=== PATIENT | male | born 1950 | race Caucasian/White ===

== ENCOUNTER 2018-06-08 22:11 | Emergency (ER) | payer MEDICARE, OTHER ==
[~2018-06-08] VITALS: Ht 175.3 cm; Wt 74.0 kg
[2018-06-08 22:54] LABS: BASOPHILS % (AUTO) 0.7 % (0-1); EOSINOPHILS # (AUTO) 0.2 X10'3 (0-0.9); EOSINOPHILS % (AUTO) 3.8 % (0-6); HEMATOCRIT 41.6 % (42.0-52.0); HEMOGLOBIN 13.8 g/dl (14.0-17.9); LYMPHOCYTES # (AUTO) 1.3 X10'3 (1.1-4.8); LYMPHOCYTES % (AUTO) 22.1 % (21-51); MEAN CORPUSCULAR HEMOGLOBIN 30.6 PG (27.0-31.0); MEAN CORPUSCULAR HGB CONC 33.2 % (33.0-36.5); MEAN PLATELET VOLUME 10.1 FL (7.4-10.4); MONOCYTES # (AUTO) 0.5 X10'3 (0-0.9); MONOCYTES % (AUTO) 8.4 % (2-12); NEUTROPHILS # (AUTO) 3.9 X10'3 (1.8-7.7); PLATELET COUNT 171 X10'3 (140-440); RED BLOOD COUNT 4.52 X10'6 (4.70-6.10); RED CELL DISTRIBUTION WIDTH 15.3 % (11.5-14.5)
[2018-06-08 23:05] LABS: INR 1.1 INR; PARTIAL THROMBOPLASTIN TIME 27 SECONDS (22-32); PROTHROMBIN TIME 11.1 SECONDS (9.0-12.0)
[2018-06-08 23:07] LABS: ALANINE AMINOTRANSFERASE 35 U/L (12-78); ALBUMIN 3.5 G/DL (3.4-5.0); ALBUMIN/GLOBULIN RATIO 1.1 (1.1-1.5); ALKALINE PHOSPHATASE 62 IU/L (46-116); ANION GAP 10 (8-16); ASPARTATE AMINO TRANSFERASE 22 U/L (10-37); BILIRUBIN,TOTAL 0.5 MG/DL (0.1-1.0); BLOOD UREA NITROGEN 35 MG/DL (7-18); BUN/CREATININE RATIO 22.3 (5.4-32.0); CALCIUM 9.4 MG/DL (8.5-10.1); CHLORIDE 104 MMOL/L (99-107); CREATININE 1.57 MG/DL (0.60-1.10); GLUCOSE 116 MG/DL (70-104); POTASSIUM 3.8 MMOL/L (3.5-5.1); SODIUM 139 MMOL/L (135-145); TOTAL CARBON DIOXIDE 25.5 MMOL/L (24-32); TOTAL PROTEIN 6.7 G/DL (6.4-8.2); eGFR 44 ML/MIN
[2018-06-08] MEDS ORDERED: normal saline 1000ML IV soln IVB ONE (23:15)
[2018-06-09 01:04] VITALS: BP 122/68
== END 2018-06-09 02:39 | disposition home or self-care (01) ==
LOC: ER 22:12
DX: R07.89 Other chest pain (principal); R11.0 Nausea; R61 Generalized hyperhidrosis; I25.10 Atherosclerotic heart disease of native coronary artery without angina pectoris; E78.00 Pure hypercholesterolemia, unspecified; I10 Essential (primary) hypertension; I25.2 Old myocardial infarction; Z98.61 Coronary angioplasty status; Z95.1 Presence of aortocoronary bypass graft
CPT/HCPCS: 36415; 71045; 80053; 84484; 85025; 85610; 85730; 93005; 99285

== ENCOUNTER 2018-10-12 08:18 | Day surgery (SDC) | payer OTHER, MEDICARE ==
[2018-10-11 10:02] LABS: BASOPHILS # (AUTO) 0.1 X10'3 (0-0.2); EOSINOPHILS # (AUTO) 0.2 X10'3 (0-0.9); EOSINOPHILS % (AUTO) 2.4 % (0-6); HEMATOCRIT 44.5 % (42.0-52.0); HEMOGLOBIN 15.1 g/dl (14.0-17.9); LYMPHOCYTES # (AUTO) 1.2 X10'3 (1.1-4.8); MEAN CORPUSCULAR HEMOGLOBIN 32.1 PG (27.0-31.0); MEAN CORPUSCULAR HGB CONC 33.8 g/dL (33.0-36.5); MEAN PLATELET VOLUME 10.5 FL (7.4-10.4); MONOCYTES # (AUTO) 0.5 X10'3 (0-0.9); NEUTROPHILS % (AUTO) 72.6 % (42-75); PLATELET COUNT 174 X10'3 (140-440); RED BLOOD COUNT 4.68 X10'6 (4.70-6.10); RED CELL DISTRIBUTION WIDTH 14.6 % (11.5-14.5); WHITE BLOOD COUNT 6.9 X10'3 (4.5-11.0)
[2018-10-11 10:24] LABS: ANION GAP 9 (8-16); BLOOD UREA NITROGEN 24 MG/DL (7-18); CALCIUM 9.2 MG/DL (8.5-10.1); CHLORIDE 104 MMOL/L (99-107); CREATININE 1.41 MG/DL (0.60-1.10); GLUCOSE 107 MG/DL (70-104); POTASSIUM 4.4 MMOL/L (3.5-5.1); SODIUM 139 MMOL/L (135-145); eGFR 50 ML/MIN
[2018-10-11 10:25] LABS: ALBUMIN 3.9 G/DL (3.4-5.0)
[2018-10-11 10:35] LABS: INR 1.1 INR; PARTIAL THROMBOPLASTIN TIME 28 SECONDS (22-32); PROTHROMBIN TIME 10.9 SECONDS (9.0-12.0)
[~2018-10-12] VITALS: Ht 175.3 cm; Wt 77.7 kg
[2018-10-12] VITALS (19 sets, daily range): BP systolic 99–158; BP diastolic 27–95
[2018-10-12] MEDS ORDERED: LORazepam 0.5 MG tablet PO PRN (09:00)
[2018-10-12] MEDS ORDERED: diphenhydrAMINE 25mg capsule PO PRN (09:00)
[2018-10-12] MEDS ORDERED: PRAS10TA6 PO (09:12)
[2018-10-12] MEDS ORDERED: NITR0.4T51 SL (09:12)
[2018-10-12] MEDS ORDERED: RANI150T8 PO (09:12)
[2018-10-12] MEDS ORDERED: CARV3.122 PO (09:12)
[2018-10-12] MEDS ORDERED: LISI-604 PO (09:12)
[2018-10-12] MEDS ORDERED: ZOLP5TAB8 PO (09:12)
[2018-10-12] MEDS ORDERED: ASPI-1265 PO (09:12)
[2018-10-12] MEDS ORDERED: AMIO100T4 PO (09:12)
[2018-10-12] MEDS ORDERED: ATOR80TA PO (09:12)
[2018-10-12] MEDS: normal saline 1000ml 1,000 ML IV SCH ×3 (09:16→19:45)
[2018-10-12] MEDS ORDERED: fentaNYL/PF 50MCG/1 ML 2ML syringe ONE ×2 (13:28→14:19)
[2018-10-12] MEDS ORDERED: midazolam 2 mg/2 ml injection ONE ×2 (13:28→14:19)
[2018-10-12] MEDS ORDERED: nitroGLYCERIN-Tridil 50MG/D5W 250 ML IV ONE (13:28)
[2018-10-12] MEDS ORDERED: iohexol 350MG/ML 100ml bottle IV ONE ×2 (13:29→14:19)
[2018-10-12] MEDS ORDERED: iohexol 350 MG/ML 50ML vial IV ONE ×2 (13:29→14:07)
[2018-10-12] MEDS ORDERED: LIDOcaine 1% (10mg/ml)w/preservative injection 20ml MDV ONE (13:29)
[2018-10-12] MEDS ORDERED: heparin 1,000unit/ml 10ml vial 10 ML ONE (13:29)
[2018-10-12] MEDS ORDERED: heparin 25,000 UNIT/250ml bag 250 ML IV ONE (14:19)
[2018-10-12] MEDS ORDERED: acetylcysteine 200 MG/ml 4ml vial PO ONE (14:30)
[2018-10-12] MEDS ORDERED: sod bicarbonate 150mEq in D5W 1,150 ML IV ONE (14:30)
[2018-10-12] MEDS ORDERED: ticagrelor 90mg tablet ONE (15:02)
[2018-10-12] MEDS ORDERED: morphine 4 MG/ML inj SYRINge IV PRN (15:40)
[2018-10-12] MEDS ORDERED: HYDROcodone/acetaminophen 10/325mg tab PO PRN ×2 (15:40)
[2018-10-12] MEDS ORDERED: magnesium hydroxide 30ml (MOM) UD suspension PO PRN (15:40)
[2018-10-12] MEDS ORDERED: nitroGLYCERIN 0.4mg SUBLingual tab SL PRN (15:40)
[2018-10-12] MEDS ORDERED: zolpidem 5mg tablet PO PRN (15:40)
[2018-10-12] MEDS ORDERED: cyclobenzaprine 10mg tablet PO PRN (15:40)
[2018-10-12] MEDS ORDERED: acetaminophen 325mg tablet PO PRN (15:40)
[2018-10-12] MEDS ORDERED: proCHLORperazine 10 MG/2 ml inj IV PRN (15:40)
[2018-10-12] MEDS ORDERED: OXAZEpam 15mg capsule PO PRN (15:40)
[2018-10-12 18:26] LABS: ISTAT HGB ART 14.6 g/dl (14.0-18.0); ISTAT Hct ART 43 %PCV (42-52); ISTAT O2 SATURATION ARTERIAL 99 % (95-98); ISTAT SOURCE ART
[2018-10-12 18:26] LABS: ISTAT Hct MIX 42 %PCV (42-52); ISTAT O2 SATURATION MIX VENOUS 77 % (60-80); ISTAT SOURCE MIX
--- NOTE | 2018-10-12 18:46 | NUR ---
Problems reprioritized. Patient report given, questions answered & plan of care reviewed with ZULEYMA LOYA.
--- NOTE | 2018-10-12 18:48 | NUR ---
Abiola Posey RN received report from Alissa AMOR via telephone. Waiting for pt arrival to [facility] 3017A Addendum: 10/12/18 at 2125 by Linda Smith RN ZULEYMA Tapia
--- NOTE | 2018-10-12 18:50 | NUR ---
Patient in room PCU 3017. I have received report from Richi and had the opportunity to ask questions and assume patient care.
--- NOTE | 2018-10-12 19:00 | NUR ---
PT TRANSFERRED TO [facility] VIA [facility]. BELONGINGS AND CHART WITH PATIENT.
--- NOTE | 2018-10-12 19:16 | NUR ---
Pt arrived and transferred using Teresa tube. Alert and oriented. Stent x1 placed in RCA. He reports this being his 5th stent and 8th heart cath. Pleasant and cooperative with care. VSS. Femstop in place. Supine and reverse trendelenburg for the next 4-6 hours. NS running at 100 ml/hr
[2018-10-12] MEDS: docusate sod 100mg capsule PO SCH (20:03)
[2018-10-12] MEDS: ticagrelor 90mg tablet PO SCH (20:04)
[2018-10-12] MEDS: carVEDilol 3.125mg tablet PO SCH (20:04)
[2018-10-12] MEDS: aspirin 81mg tab.chew PO SCH (20:04)
[2018-10-12] MEDS ORDERED: famotidine 20mg tablet PO SCH (21:00)
[2018-10-12] MEDS ORDERED: atorvastatin 20mg tablet PO SCH (21:00)
[2018-10-12] MEDS: acetylcysteine 200 MG/ml 4ml vial PO SCH (22:48)
--- NOTE | 2018-10-12 23:00 | NUR ---
Pt laid supine for [address] in [address]. Some bruising to site. No hematoma present. Some hardness, pt reports is from a prior hernia. No hematomas present. Femstop has been removed and pt is resting in semi fowlers.
[2018-10-13 02:00] VITALS: BP 116/60
[2018-10-13 03:11] VITALS: BP 116/60
[2018-10-13 05:19] LABS: BASOPHILS # (AUTO) 0.1 X10'3 (0-0.2); BASOPHILS % (AUTO) 0.8 % (0-1); EOSINOPHILS # (AUTO) 0.1 X10'3 (0-0.9); EOSINOPHILS % (AUTO) 2.1 % (0-6); HEMATOCRIT 38.3 % (42.0-52.0); HEMOGLOBIN 13.1 g/dl (14.0-17.9); LYMPHOCYTES # (AUTO) 1.3 X10'3 (1.1-4.8); LYMPHOCYTES % (AUTO) 19.4 % (21-51); MEAN CORPUSCULAR HEMOGLOBIN 32.4 PG (27.0-31.0); MEAN CORPUSCULAR HGB CONC 34.2 g/dL (33.0-36.5); MEAN CORPUSCULAR VOLUME 94.7 FL (78-98); MEAN PLATELET VOLUME 10.4 FL (7.4-10.4); MONOCYTES # (AUTO) 0.5 X10'3 (0-0.9); MONOCYTES % (AUTO) 7.6 % (2-12); NEUTROPHILS # (AUTO) 4.9 X10'3 (1.8-7.7); NEUTROPHILS % (AUTO) 70.1 % (42-75); PLATELET COUNT 142 X10'3 (140-440); RED BLOOD COUNT 4.04 X10'6 (4.70-6.10); RED CELL DISTRIBUTION WIDTH 14.7 % (11.5-14.5); WHITE BLOOD COUNT 6.9 X10'3 (4.5-11.0)
[2018-10-13 05:42] LABS: ANION GAP 7 (8-16); BLOOD UREA NITROGEN 20 MG/DL (7-18); BUN/CREATININE RATIO 14.2 (5.4-32.0); CALCIUM 8.6 MG/DL (8.5-10.1); CHLORIDE 108 MMOL/L (99-107); CREATININE 1.41 MG/DL (0.60-1.10); GLUCOSE 92 MG/DL (70-104); POTASSIUM 4.1 MMOL/L (3.5-5.1); SODIUM 143 MMOL/L (135-145); eGFR 50 ML/MIN
--- NOTE | 2018-10-13 06:25 | NUR ---
Patient in room PCU 3017. I have received report from Johnna RN and UZLEYMA Posey and had the opportunity to ask questions and assume patient care.
--- NOTE | 2018-10-13 06:25 | NUR ---
Problems reprioritized. Patient report given, questions answered & plan of care reviewed with Mari.
--- NOTE | 2018-10-13 06:27 | NUR ---
Problems reprioritized. Patient report given, questions answered & plan of care reviewed with Mari AMOR. ORIENTEE documentation: I have reviewed and agree with all interventions, assessments performed and documented by GORDON AMOR. ORIENTZAHRA Medication Administration: For this medication-pass time frame, all medication were reviewed, dispensed, administered and documented per hospital policy by GORDON AMOR.
[2018-10-13 07:00] VITALS: BP 137/72
[2018-10-13] MEDS: aspirin 81mg tab.chew PO SCH (07:56)
[2018-10-13] MEDS: ticagrelor 90mg tablet PO SCH (07:56)
[2018-10-13] MEDS: carVEDilol 3.125mg tablet PO SCH (07:57)
[2018-10-13] MEDS: docusate sod 100mg capsule PO SCH (07:57)
[2018-10-13] MEDS ORDERED: lisinopril 5mg tablet PO SCH (08:00)
[2018-10-13] MEDS ORDERED: amiodarone 100mg tablet PO SCH (08:00)
[2018-10-13] MEDS: acetylcysteine 200 MG/ml 4ml vial PO SCH (08:00)
[2018-10-13 11:00] VITALS: BP 129/68
--- NOTE | 2018-10-13 13:25 | NUR ---
Pt discharged. IV removed, catheter intact, ID band removed. Pt took one bag of belongings including cell phone and wallet. Ambulated pt to lobby where he left via cab. Pt in stable condition. Care relinquished.
== END 2018-10-13 13:25 | disposition home or self-care (01) ==
LOC: SSTAY O 08:18 → PCU 3S 19:19 → SSTAY O 10-13 13:25
PROVIDERS: ATTEND Internal Medicine Cardiovascular Disease
DX: I25.10 Atherosclerotic heart disease of native coronary artery without angina pectoris (principal); I50.22 Chronic systolic (congestive) heart failure; E78.5 Hyperlipidemia, unspecified; I48.0 Paroxysmal atrial fibrillation; I25.5 Ischemic cardiomyopathy; I11.0 Hypertensive heart disease with heart failure; I49.01 Ventricular fibrillation; I25.2 Old myocardial infarction; G47.00 Insomnia, unspecified; Z79.82 Long term (current) use of aspirin; Z79.899 Other long term (current) drug therapy; Z98.890 Other specified postprocedural states; Z83.3 Family history of diabetes mellitus; Z95.5 Presence of coronary angioplasty implant and graft
CPT/HCPCS: 36415; 80048; 82803; 83880; 85014; 85025; 85347; 85610; 85730; 87070; 93005; 93460; 99152; 99153; A6257; C1874; C9600; J1644; J2001; J2250; J2270; J3010; J7030; Q0163; Q9967; A4620; C1725; C1769; G0378; J3490

== ENCOUNTER 2020-03-06 06:32 | Day surgery (SDC) | payer OTHER, MEDICARE ==
[2020-03-05 09:42] LABS: BASOPHILS # (AUTO) 0.1 X10'3 (0-0.2); EOSINOPHILS # (AUTO) 0.2 X10'3 (0-0.9); EOSINOPHILS % (AUTO) 3.8 % (0-6); HEMATOCRIT 45.3 % (42.0-52.0); HEMOGLOBIN 15.1 g/dl (14.0-17.9); LYMPHOCYTES # (AUTO) 1.1 X10'3 (1.1-4.8); LYMPHOCYTES % (AUTO) 18.1 % (21-51); MEAN CORPUSCULAR HEMOGLOBIN 32.1 PG (27.0-31.0); MEAN CORPUSCULAR HGB CONC 33.3 g/dL (33.0-36.5); MEAN CORPUSCULAR VOLUME 96.3 FL (78-98); MEAN PLATELET VOLUME 10.1 FL (7.4-10.4); MONOCYTES # (AUTO) 0.5 X10'3 (0-0.9); MONOCYTES % (AUTO) 8.7 % (2-12); NEUTROPHILS # (AUTO) 4.2 X10'3 (1.8-7.7); NEUTROPHILS % (AUTO) 68.4 % (42-75); PLATELET COUNT 174 X10'3 (140-440); RED BLOOD COUNT 4.71 X10'6 (4.70-6.10); RED CELL DISTRIBUTION WIDTH 13.9 % (11.5-14.5); WHITE BLOOD COUNT 6.2 X10'3 (4.5-11.0)
[2020-03-05 09:53] LABS: ALBUMIN 3.9 G/DL (3.4-5.0); ANION GAP 6 (8-16); BLOOD UREA NITROGEN 19 MG/DL (7-18); BUN/CREATININE RATIO 12.5 (5.4-32.0); CALCIUM 8.9 MG/DL (8.5-10.1); CHLORIDE 106 MMOL/L (99-107); CREATININE 1.52 MG/DL (0.60-1.10); GLUCOSE 108 MG/DL (70-104); POTASSIUM 4.5 MMOL/L (3.5-5.1); SODIUM 140 MMOL/L (135-145); TOTAL CARBON DIOXIDE 27.6 MMOL/L (24-32); eGFR 45 ML/MIN
[2020-03-05 09:55] LABS: PARTIAL THROMBOPLASTIN TIME 27 SECONDS (22-32)
[~2020-03-06] VITALS: Ht 175.3 cm; Wt 76.3 kg
[2020-03-06] VITALS (12 sets, daily range): BP systolic 108–166; BP diastolic 66–91
[~2020-03-06 06:32] MED LIST: AMIO100T4 PO; ASPI-1265 PO; ATOR80TA PO; CARV3.122 PO; LISI-604 PO; NITR0.4T51 SL; PRAS10TA6 PO; RANI150T8 PO; ZOLP5TAB8 PO
[2020-03-06] MEDS ORDERED: acetylcysteine 200 MG/ml 4ml vial PO PRN (06:43)
[2020-03-06] MEDS ORDERED: normal saline 1,000 ML IV SCH (06:45)
[2020-03-06] MEDS ORDERED: diphenhydrAMINE 25mg capsule PO PRN (06:45)
[2020-03-06] MEDS ORDERED: sodium bicarbonate (8.4%) inj. 150 ML in dextrose 5%-water 1,000 ML IV ONE (06:55)
[2020-03-06] MEDS ORDERED: LORazepam 0.5 MG tablet PO PRN (07:00)
[2020-03-06] MEDS ORDERED: LIDOcaine/PRILOcaine 5gm cream TP ONE (07:05)
[2020-03-06] MEDS ORDERED: SAW160CA3 PO (07:13)
[2020-03-06] MEDS ORDERED: MECO10005 (07:13)
[2020-03-06] MEDS ORDERED: UBID1CAP54 PO (07:13)
[2020-03-06] MEDS ORDERED: LOSA100T57 PO (07:13)
[2020-03-06] MEDS ORDERED: VALS80TA2 PO (07:13)
[2020-03-06] MEDS ORDERED: OMEP-50 PO (07:13)
[2020-03-06] MEDS ORDERED: verapamil 2.5 mg/ml inj IV ONE (09:44)
[2020-03-06] MEDS ORDERED: midazolam 2 mg/2 ml injection ONE (09:44)
[2020-03-06] MEDS ORDERED: nitroGLYCERIN-Tridil 50MG/D5W 250 ML IV ONE (09:44)
[2020-03-06] MEDS ORDERED: iohexol 350MG/ML 100ml bottle IV ONE ×2 (09:45→10:40)
[2020-03-06] MEDS ORDERED: LIDOcaine 1% (10mg/ml)w/preservative injection 20ml MDV ONE (09:45)
[2020-03-06] MEDS ORDERED: fentaNYL/PF 50MCG/1 ML 2ML syringe ONE (09:45)
[2020-03-06] MEDS ORDERED: iohexol 350 MG/ML 50ML vial IV ONE ×2 (09:45→10:40)
[2020-03-06] MEDS ORDERED: heparin 1,000unit/ml 10ml vial 10 ML ONE (09:45)
[2020-03-06 11:01] LABS: ISTAT HGB ART 12.2 g/dl (14.0-18.0); ISTAT Hct ART 36 %PCV (42-52); ISTAT O2 SATURATION ARTERIAL 97 % (95-98); ISTAT SOURCE ART
== END 2020-03-06 16:00 | disposition home or self-care (01) ==
LOC: SSTAY O 06:32
PROVIDERS: ATTEND Internal Medicine Cardiovascular Disease
DX: I25.110 Atherosclerotic heart disease of native coronary artery with unstable angina pectoris (principal); I48.0 Paroxysmal atrial fibrillation; I13.0 Hypertensive heart and chronic kidney disease with heart failure and stage 1 through stage 4 chronic kidney disease, or unspecified chronic kidney disease; N18.9 Chronic kidney disease, unspecified; I50.22 Chronic systolic (congestive) heart failure; E78.5 Hyperlipidemia, unspecified; G47.00 Insomnia, unspecified; I25.2 Old myocardial infarction; F43.10 Post-traumatic stress disorder, unspecified; Z98.890 Other specified postprocedural states; Z79.899 Other long term (current) drug therapy; F17.210 Nicotine dependence, cigarettes, uncomplicated; Z72.89 Other problems related to lifestyle; Z95.5 Presence of coronary angioplasty implant and graft
CPT/HCPCS: 36415; 80048; 82803; 85014; 85025; 85610; 85730; 93005; 93460; 99152; 99153; C1769; C1894; J1644; J2001; J2250; J3010; Q0163; Q9967; A4620; A5120; C1751; J3490

== ENCOUNTER 2020-03-20 05:14 | Inpatient (IN) | payer OTHER, MEDICARE ==
[2020-03-13 13:05] LABS: ABG BASE EXCESS -2.4 mmol/L (-2.0-2.0); ABG HCO3 20.2 mmol/L (22.0-26.0); ABG OXYGEN SATURATION 97.6 % (94-97); ABG PCO2 (T) 29.5 mmHg (35.0-48.0); ABG PO2 (T) 99.9 mmHg (75.0-100.0); ALLEN'S TEST POSITIVE; FCOHb 0.4 % (0.0-3.9); FMetHb 0.2 % (0.0-1.5); TOTAL HEMOGLOBIN 14.5 G/dl (14.0-18.0)
[2020-03-13 13:43] LABS: CLARITY,URINE CLEAR (Clear); COLOR,URINE STRAW (Yellow); GLUCOSE, URINE NEGATIVE (Neg); KETONES,URINE NEGATIVE (Neg); LEUKOCYTE ESTERASE ,URINE NEGATIVE (Neg); NITRITES, URINE NEGATIVE (Neg); OCCULT BLOOD,URINE TRACE-INTACT (Neg); PROTEIN,URINE NEGATIVE (Neg); UROBILINOGEN,URINE 0.2 E.U/dL (0.2-1.0)
[2020-03-13 13:46] LABS: UA COLLECTION TYPE VOIDED
[2020-03-13 13:48] LABS: BACTERIA,URINE FEW /HPF (Neg); RBC,URINE 0-2 /HPF (0-2); SQUAMOUS EPITHELIAL CELL,UR FEW /LPF (FEW); WBC,URINE 0-4 /HPF (0-4)
[2020-03-13 13:58] LABS: BASOPHILS # (AUTO) 0.1 X10'3 (0-0.2); EOSINOPHILS # (AUTO) 0.1 X10'3 (0-0.9); LYMPHOCYTES # (AUTO) 1.2 X10'3 (1.1-4.8); LYMPHOCYTES % (AUTO) 17.3 % (21-51); MEAN CORPUSCULAR HEMOGLOBIN 32.2 PG (27.0-31.0); MEAN CORPUSCULAR HGB CONC 33.4 g/dL (33.0-36.5); MEAN CORPUSCULAR VOLUME 96.5 FL (78-98); MEAN PLATELET VOLUME 10.8 FL (7.4-10.4); MONOCYTES # (AUTO) 0.5 X10'3 (0-0.9); MONOCYTES % (AUTO) 6.7 % (2-12); NEUTROPHILS # (AUTO) 5.2 X10'3 (1.8-7.7); PRE OP HEMATOCRIT 42.5 % (42.0-52.0); PRE OP HEMOGLOBIN 14.2 g/dL (14.0-17.9); PRE OP PLATELET COUNT 165 X10'3 (140-440); RED CELL DISTRIBUTION WIDTH 14.1 % (11.5-14.5)
[2020-03-13 14:12] LABS: PRE OP INR 1.1 INR; PRE OP PROTIME 11.4 SECONDS (9.0-12.0)
[2020-03-13 14:25] LABS: ALBUMIN/GLOBULIN RATIO 1.3 (1.1-1.5); ALKALINE PHOSPHATASE 65 IU/L (46-116); BLOOD UREA NITROGEN 16 MG/DL (7-18); BUN/CREATININE RATIO 11.8 (5.4-32.0); CALCIUM 8.8 MG/DL (8.5-10.1); CHLORIDE 106 MMOL/L (99-107); CREATININE 1.36 MG/DL (0.60-1.10); PRE OP ALT 29 U/L (30-65); PRE OP ANION GAP 9 (8-16); PRE OP AST 17 U/L (10-37); PRE OP BILIRUB, TOTAL 1.2 MG/DL (0.0-1.0); PRE OP GLUCOSE 96 MG/DL (70-104); PRE OP POTASSIUM 3.7 MMOL/L (3.4-5.1); PRE OP SODIUM 142 MMOL/L (135-145); eGFR 52 ML/MIN
[2020-03-13 14:44] LABS: HEMOGLOBIN A1C 5.2 % (4.5-6.2)
[~2020-03-20] VITALS: Ht 175.3 cm; Wt 78.4 kg
[2020-03-20] VITALS (18 sets, daily range): BP systolic 107–150; BP diastolic 46–83
[~2020-03-20 05:14] MED LIST changes: -LISI-604 PO; +MECO10005; +OMEP-50 PO; -RANI150T8 PO; +SAW160CA3 PO; +UBID1CAP54 PO; +VALS80TA2 PO; +albuterol 2.5 MG/3 ML nebule NEB ONE; +ceFAZolin 1000mg inj ONE; +ringers solution, lacted 1,000 ML IV SCH
[2020-03-20] MEDS ORDERED: DOCUMENT DATE & TIME OF BETA-BLOCKER PO ONE (05:30)
[2020-03-20] MEDS ORDERED: dextrose 50%-water 50ml dispensing syringe IV PRN ×2 (05:30→12:20)
[2020-03-20] MEDS ORDERED: LORazepam 2 mg/ml vial IV PRN (05:30)
[2020-03-20] MEDS: Insulin Reg/NS 100units/100mL 100 ML IV SCH (05:30)
[2020-03-20] MEDS ORDERED: gabapentin 300mg capsule PO ONE (05:30)
[2020-03-20] MEDS ORDERED: metoprolol tartrate 12.5mg (1/2 tablet) PO ONE (05:30)
[2020-03-20] MEDS ORDERED: mupirocin 2% nasal ointment 1gm UD NS ONE (05:30)
[2020-03-20] MEDS ORDERED: famotidine 20mg tablet PO ONE (05:30)
[2020-03-20] MEDS ORDERED: ceFAZolin 2gm in dextrose, iso 50 ML IV ONE (05:30)
[2020-03-20] MEDS ORDERED: Insulin Reg/NS 100units/100mL 100 ML IV SCH ×2 (05:30→12:19)
[2020-03-20] MEDS ORDERED: insulin Lispro (HumaLOG) vial - multi-dose SQ PRN (05:30)
[2020-03-20] MEDS ORDERED: MIDAZolam 1mg/ml 10ml vial ONE (06:45)
[2020-03-20] MEDS ORDERED: vancomycin/NS 1 GM ADD-VANTAGE 250 ML IV ONE (06:45)
[2020-03-20] MEDS ORDERED: SUFENTANIL CITRATE 50 MCG/ML 2ml ampule IV ONE (06:49)
[2020-03-20] MEDS ORDERED: DOPamine/D5W 400mg/250ml bag IV ONE ×2 (06:55)
[2020-03-20] MEDS ORDERED: INSULIN R 100 UNIT in NS 100ML (1 UNIT/1 ML) BAG IV ONE (06:55)
[2020-03-20] MEDS ORDERED: albumin (Human) 5% 250ml BOTTLE IV ONE (06:55)
[2020-03-20] MEDS ORDERED: aminocaproic acid 250 MG/1 ML inj. ONE ×2 (06:55→08:00)
[2020-03-20] MEDS ORDERED: ceFAZolin 1000mg inj ONE (06:55)
[2020-03-20] MEDS ORDERED: NORepinephrine 8 MG in NS 250 ML BAG (32 mcg/ml) IV ONE (06:55)
[2020-03-20] MEDS ORDERED: nitroGLYCERIN in D5W 50mg/250ml (Tridil) infusion IV ONE (06:55)
[2020-03-20] MEDS ORDERED: sevoflurane 250ml liquid IH ONE (06:55)
[2020-03-20] MEDS ORDERED: atropine 0.4 mg/ml 20ml vial ONE (06:55)
[2020-03-20] MEDS ORDERED: isoflurane 100ml inhalation liquid IH ONE (06:55)
[2020-03-20] MEDS ORDERED: papaverine 30 mg/ml 2ml inj. ONE (07:00)
[2020-03-20] MEDS ORDERED: LIDOcaine 2% (20 mg/ml) 5ml cardiac syringe ONE (08:00)
[2020-03-20] MEDS ORDERED: sodium bicarbonate (8.4%) 1 mEq/ml syringe ONE (08:00)
[2020-03-20] MEDS ORDERED: methylPREDNISolone sod. succ. 500mg inj ONE (08:00)
[2020-03-20] MEDS ORDERED: albumin (human) 25% 100 ML IV solution IV ONE (08:00)
[2020-03-20] MEDS ORDERED: calcium chloride 100 MG/1 ML inj IV ONE (08:00)
[2020-03-20] MEDS ORDERED: phenylephrine 10mg/ml inj. ONE ×2 (08:00→08:27)
[2020-03-20] MEDS ORDERED: heparin 1,000 units/ml 10ml inj ONE (08:00)
[2020-03-20] MEDS ORDERED: MAGNESIUM SULFATE 4 MEQ/ML (5gm/10ml) injection ONE (08:00)
[2020-03-20] MEDS ORDERED: heparin 10,000 units/1 ML INJ ONE (08:00)
[2020-03-20] MEDS ORDERED: potassium Cl 2 mEq/ml inj IV ONE (08:00)
[2020-03-20 08:05] LABS: ABG BASE EXCESS -3.1 mmol/L (-2.0-2.0); ABG HCO3 20.8 mmol/L (22.0-26.0); ABG OXYGEN SATURATION 99.4 % (94-97); ABG PCO2 33.7 mmHg (35.0-48.0); ABG PO2 291.2 mmHg (75.0-100.0); CL (ABG) 107 mmol/L (98-110); FCOHb 0.3 % (0.0-3.9); FMetHb 0.2 % (0.0-1.5); FO2Hb 98.9 % (94-97); GLUCOSE (ABG) 98 mg/dl (70-140); IONIZED CA (ABG) 1.12 mmol/L (1.10-1.43); K (ABG) 3.6 mmol/L (3.5-5.0); TOTAL HEMOGLOBIN 12.2 G/dl (14.0-18.0)
[2020-03-20] MEDS ORDERED: propofol inj 20 ML IV ONE (08:27)
[2020-03-20] MEDS ORDERED: LIDOcaine 2% (20mg/ml) 5ml vial ONE (08:27)
[2020-03-20] MEDS ORDERED: rocuronium 10mg/ml inj IV ONE ×2 (08:27)
[2020-03-20] MEDS ORDERED: 0.9 % SODIUM CHLORIDE 10 ML VIAL ONE ×2 (08:27)
[2020-03-20] MEDS ORDERED: ePHEDrine 50MG/ML INJ. ONE (08:27)
[2020-03-20] MEDS ORDERED: papaverine 30 mg/ml 2ml inj. IA ONE (08:38)
[2020-03-20] MEDS ORDERED: heparin 10,000 units/1 ML INJ IR ONE (08:39)
[2020-03-20] MEDS ORDERED: fentaNYL/PF 50MCG/1 ML 2ML syringe IV PRN (09:05)
[2020-03-20] MEDS ORDERED: midazolam 2 mg/2 ml injection IV PRN (09:05)
[2020-03-20 09:21] LABS: ABG BASE EXCESS 2.6 mmol/L (-2.0-2.0); ABG HCO3 25.8 mmol/L (22.0-26.0); ABG OXYGEN SATURATION 99.4 % (94-97); ABG PCO2 34.5 mmHg (35.0-48.0); ABG PO2 241.5 mmHg (75.0-100.0); CL (ABG) 105 mmol/L (98-110); FCOHb 0.2 % (0.0-3.9); FMetHb 0.3 % (0.0-1.5); FO2Hb 98.9 % (94-97); GLUCOSE (ABG) 95 mg/dl (70-140); IONIZED CA (ABG) 1.02 mmol/L (1.10-1.43); K (ABG) 4.7 mmol/L (3.5-5.0); TOTAL HEMOGLOBIN 10.4 G/dl (14.0-18.0)
[2020-03-20 09:50] LABS: ABG BASE EXCESS VENOUS -0.3 mmol/L; ABG HCO3 VENOUS 27.7 mmol/L; ABG PCO2 VENOUS 62.9 mmHg; ABG PO2 VENOUS 61.1 mmHg; CL (ABG) 105 mmol/L (98-110); FCOHb VENOUS 0.3 %; FHHb VENOUS 13.9 %; FMetHb VENOUS 0.5 %; FO2Hb VENOUS 85.3 %; GLUCOSE (ABG) 95 mg/dl (70-140); IONIZED CA (ABG) 1.11 mmol/L (1.10-1.43); K (ABG) 4.3 mmol/L (3.5-5.0)
[2020-03-20 10:10] LABS: ABG BASE EXCESS 0.1 mmol/L (-2.0-2.0); ABG HCO3 23.9 mmol/L (22.0-26.0); ABG PCO2 35.9 mmHg (35.0-48.0); ABG PO2 260.3 mmHg (75.0-100.0); CL (ABG) 107 mmol/L (98-110); FCOHb 0.3 % (0.0-3.9); FMetHb 0.4 % (0.0-1.5); FO2Hb 98.3 % (94-97); GLUCOSE (ABG) 102 mg/dl (70-140); IONIZED CA (ABG) 1.05 mmol/L (1.10-1.43); K (ABG) 4.3 mmol/L (3.5-5.0); TOTAL HEMOGLOBIN 10.4 G/dl (14.0-18.0)
[2020-03-20 10:40] LABS: ABG BASE EXCESS 0.1 mmol/L (-2.0-2.0); ABG HCO3 24.3 mmol/L (22.0-26.0); ABG OXYGEN SATURATION 98.5 % (94-97); ABG PCO2 37.3 mmHg (35.0-48.0); ABG PO2 159.9 mmHg (75.0-100.0); CL (ABG) 109 mmol/L (98-110); FCOHb 0.3 % (0.0-3.9); FMetHb 0.4 % (0.0-1.5); FO2Hb 97.8 % (94-97); GLUCOSE (ABG) 109 mg/dl (70-140); IONIZED CA (ABG) 1.05 mmol/L (1.10-1.43); K (ABG) 4.4 mmol/L (3.5-5.0); TOTAL HEMOGLOBIN 9.7 G/dl (14.0-18.0)
[2020-03-20 11:11] LABS: ABG BASE EXCESS -0.4 mmol/L (-2.0-2.0); ABG HCO3 23.3 mmol/L (22.0-26.0); ABG PCO2 33.6 mmHg (35.0-48.0); ABG PO2 246.3 mmHg (75.0-100.0); CL (ABG) 105 mmol/L (98-110); FCOHb 0.3 % (0.0-3.9); FMetHb 0.6 % (0.0-1.5); FO2Hb 98.1 % (94-97); GLUCOSE (ABG) 104 mg/dl (70-140); IONIZED CA (ABG) 1.38 mmol/L (1.10-1.43); K (ABG) 3.9 mmol/L (3.5-5.0)
[2020-03-20 11:35] LABS: ABG HCO3 23.4 mmol/L (22.0-26.0); ABG OXYGEN SATURATION 98.6 % (94-97); ABG PCO2 32.9 mmHg (35.0-48.0); CL (ABG) 108 mmol/L (98-110); FCOHb 0.3 % (0.0-3.9); FMetHb 0.5 % (0.0-1.5); FO2Hb 97.8 % (94-97); GLUCOSE (ABG) 112 mg/dl (70-140); IONIZED CA (ABG) 1.17 mmol/L (1.10-1.43); K (ABG) 3.4 mmol/L (3.5-5.0); TOTAL HEMOGLOBIN 8.4 G/dl (14.0-18.0)
[2020-03-20] MEDS ORDERED: niCARDipine-NS 40mg/200ml IVPB 200 ML IV PRN (12:19)
[2020-03-20] MEDS ORDERED: DOPamine 400mg/D5W 250ml 250 ML IV PRN (12:19)
[2020-03-20] MEDS ORDERED: nitroGLYCERIN-Tridil 50MG/D5W 250 ML IV PRN (12:19)
[2020-03-20] MEDS ORDERED: Neutra Phos packet PO PRN (12:20)
[2020-03-20] MEDS ORDERED: metoclopramide 5 mg/ml inj IV PRN (12:20)
[2020-03-20] MEDS ORDERED: acetaminophen 325mg tablet PO PRN ×2 (12:20)
[2020-03-20] MEDS ORDERED: magnesium 4gm in 100ml NS 100 ML IV PRN (12:20)
[2020-03-20] MEDS ORDERED: ondansetron/PF 4mg/2ml inj IV PRN (12:20)
[2020-03-20] MEDS ORDERED: magnesium 2GM in 50ml NS 50 ML IV PRN (12:20)
[2020-03-20] MEDS ORDERED: sodium phosphate inj. 30 MMOL in dextrose 5%-water 250 ML IV PRN (12:20)
[2020-03-20] MEDS ORDERED: bisacodyl 10mg suppository rectal RC PRN (12:20)
[2020-03-20] MEDS ORDERED: insulin glargine (Lantus) pen - multi-dose SQ PRN (12:20)
[2020-03-20] MEDS ORDERED: mineral oil 133ml enema RC PRN (12:20)
[2020-03-20] MEDS ORDERED: normal saline 250ml IV soln 250 ML IV PRN (12:20)
[2020-03-20] MEDS ORDERED: HYDROcodone/acetaminophen 10/325mg tab PO PRN (12:20)
[2020-03-20] MEDS ORDERED: pantoprazole 40 MG vial IV ONE (12:20)
[2020-03-20] MEDS ORDERED: magnesium citrate 296ml oral solution PO PRN (12:20)
[2020-03-20] MEDS ORDERED: magnesium hydroxide 30ml (MOM) UD suspension PO PRN (12:20)
[2020-03-20] MEDS ORDERED: potassium Cl 20 mEq SR tablet PO PRN (12:20)
[2020-03-20] MEDS ORDERED: sodium phosphate inj. 15 MMOL in dextrose 5%-water 250 ML IV PRN (12:20)
[2020-03-20] MEDS: albumin (Human) 5% 250ml 250 ML IV PRN ×3 (12:41→13:47)
[2020-03-20 12:45] LABS: ABG BASE EXCESS -1.6 mmol/L (-2.0-2.0); ABG HCO3 22.5 mmol/L (22.0-26.0); ABG OXYGEN SATURATION 99.1 % (94-97); ABG PO2 (T) 308.8 mmHg (75.0-100.0); FCOHb 0.2 % (0.0-3.9); FMetHb 0.1 % (0.0-1.5); FO2Hb 98.8 % (94-97); PATIENT TEMPERATURE 36.6; RESPIRATORY RATE 12 b/min; TIDAL VOLUME 500 mL; TOTAL HEMOGLOBIN 10.8 G/dl (14.0-18.0)
[2020-03-20 12:47] LABS: BASOPHILS # (AUTO) 0.1 X10'3 (0-0.2); BASOPHILS % (AUTO) 0.4 % (0-1); EOSINOPHILS % (AUTO) 0.4 % (0-6); HEMATOCRIT 30.6 % (42.0-52.0); HEMOGLOBIN 10.1 g/dl (14.0-17.9); LYMPHOCYTES # (AUTO) 0.5 X10'3 (1.1-4.8); LYMPHOCYTES % (AUTO) 4.1 % (21-51); MEAN CORPUSCULAR HEMOGLOBIN 31.8 PG (27.0-31.0); MEAN CORPUSCULAR VOLUME 96.3 FL (78-98); MEAN PLATELET VOLUME 10.2 FL (7.4-10.4); MONOCYTES # (AUTO) 0.3 X10'3 (0-0.9); MONOCYTES % (AUTO) 2.2 % (2-12); NEUTROPHILS # (AUTO) 11.8 X10'3 (1.8-7.7); NEUTROPHILS % (AUTO) 92.9 % (42-75); PLATELET COUNT 113 X10'3 (140-440); RED BLOOD COUNT 3.18 X10'6 (4.70-6.10); RED CELL DISTRIBUTION WIDTH 14.1 % (11.5-14.5); WHITE BLOOD COUNT 12.7 X10'3 (4.5-11.0)
[2020-03-20 13:04] LABS: PARTIAL THROMBOPLASTIN TIME 50 SECONDS (22-32)
[2020-03-20] MEDS ORDERED: desmopressin inj. 30 MCG in normal saline 100ml IV soln 92.5 ML IV ONE (13:05)
[2020-03-20] MEDS: gabapentin 300mg capsule PO SCH ×2 (13:35→20:54)
[2020-03-20] MEDS: sodium chloride 0.45% 1,000 ML IV SCH (13:36)
[2020-03-20 14:05] LABS: ALANINE AMINOTRANSFERASE 19 U/L (12-78); ALBUMIN 3.5 G/DL (3.4-5.0); ALBUMIN/GLOBULIN RATIO 2.9 (1.1-1.5); ALKALINE PHOSPHATASE 21 IU/L (46-116); ANION GAP 11 (8-16); ASPARTATE AMINO TRANSFERASE 29 U/L (10-37); BLOOD UREA NITROGEN 17 MG/DL (7-18); BUN/CREATININE RATIO 14.8 (5.4-32.0); CALCIUM 7.5 MG/DL (8.5-10.1); CHLORIDE 113 MMOL/L (99-107); CREATININE 1.15 MG/DL (0.60-1.10); GLUCOSE 128 MG/DL (70-104); PHOSPHORUS 1.6 MG/DL (2.3-4.5); POTASSIUM 3.6 MMOL/L (3.5-5.1); SODIUM 147 MMOL/L (135-145); TOTAL CARBON DIOXIDE 23.4 MMOL/L (24-32); TOTAL PROTEIN 4.7 G/DL (6.4-8.2); eGFR 63 ML/MIN
[2020-03-20] MEDS: ceFAZolin 1GM/D5W- ADD-VANTAGE 50 ML IV SCH (15:20)
[2020-03-20] MEDS: potassium Cl 20mEq/100mL bag 100 ML IV PRN ×3 (15:22→17:00)
[2020-03-20] MEDS: morphine 4 MG/ML inj SYRINge IV PRN ×5 (15:24→22:50)
[2020-03-20 15:56] LABS: ACTIVATED CLOTTING TIME 117 SEC (101-148)
--- NOTE | 2020-03-20 18:30 | NUR ---
Patient in room ICU 2043. I have received report from Melissa AMOR and had the opportunity to ask questions and assume patient care. Addendum: 03/20/20 at 2256 by Stephanie Espinoza RN Amended: Links added.
[2020-03-20 18:45] LABS: BASOPHILS % (AUTO) 0.1 % (0-1); EOSINOPHILS % (AUTO) 0 % (0-6); HEMATOCRIT 22.1 % (42.0-52.0); HEMOGLOBIN 7.2 g/dl (14.0-17.9); LYMPHOCYTES # (AUTO) 0.3 X10'3 (1.1-4.8); MEAN CORPUSCULAR HEMOGLOBIN 31.7 PG (27.0-31.0); MEAN CORPUSCULAR HGB CONC 32.6 g/dL (33.0-36.5); MEAN CORPUSCULAR VOLUME 97.1 FL (78-98); MEAN PLATELET VOLUME 10.5 FL (7.4-10.4); MONOCYTES # (AUTO) 0.3 X10'3 (0-0.9); MONOCYTES % (AUTO) 1.7 % (2-12); NEUTROPHILS # (AUTO) 14.5 X10'3 (1.8-7.7); NEUTROPHILS % (AUTO) 96.2 % (42-75); PLATELET COUNT 95 X10'3 (140-440); RED BLOOD COUNT 2.27 X10'6 (4.70-6.10); RED CELL DISTRIBUTION WIDTH 13.9 % (11.5-14.5)
[2020-03-20 18:57] LABS: ALBUMIN 3.6 G/DL (3.4-5.0); ANION GAP 8 (8-16); BLOOD UREA NITROGEN 18 MG/DL (7-18); BUN/CREATININE RATIO 13.6 (5.4-32.0); CALCIUM 7.5 MG/DL (8.5-10.1); CHLORIDE 113 MMOL/L (99-107); CREATININE 1.32 MG/DL (0.60-1.10); GLUCOSE 199 MG/DL (70-104); MAGNESIUM 2.7 MG/DL (1.5-2.4); PHOSPHORUS 3.1 MG/DL (2.3-4.5); POTASSIUM 4.8 MMOL/L (3.5-5.1); SODIUM 145 MMOL/L (135-145); TOTAL CARBON DIOXIDE 24.5 MMOL/L (24-32); eGFR 53 ML/MIN
--- NOTE | 2020-03-20 19:45 | NUR ---
Latest labs reviewed, Dr Cruz updated on latest labs, output and hemodynamics,orders received.
[2020-03-20] MEDS: mupirocin 2% nasal ointment 1gm UD NS SCH (20:00)
[2020-03-20] MEDS: vancomycin/NS 1 GM ADD-VANTAGE 250 ML IV SCH (20:50)
[2020-03-20] MEDS: sennosides/docusate sodium tablet PO SCH (20:54)
[2020-03-21] VITALS (27 sets, daily range): BP systolic 91–144; BP diastolic 33–60
[2020-03-21] MEDS: ceFAZolin 1GM/D5W- ADD-VANTAGE 50 ML IV SCH ×3 (00:40→15:07)
[2020-03-21 02:12] LABS: BASOPHILS % (AUTO) 0 % (0-1); EOSINOPHILS % (AUTO) 0 % (0-6); HEMATOCRIT 22.3 % (42.0-52.0); HEMOGLOBIN 7.6 g/dl (14.0-17.9); LYMPHOCYTES # (AUTO) 0.4 X10'3 (1.1-4.8); LYMPHOCYTES % (AUTO) 3.1 % (21-51); MEAN CORPUSCULAR HEMOGLOBIN 31.8 PG (27.0-31.0); MEAN CORPUSCULAR HGB CONC 33.9 g/dL (33.0-36.5); MEAN CORPUSCULAR VOLUME 93.6 FL (78-98); MEAN PLATELET VOLUME 9.8 FL (7.4-10.4); MONOCYTES # (AUTO) 0.3 X10'3 (0-0.9); MONOCYTES % (AUTO) 2.7 % (2-12); NEUTROPHILS % (AUTO) 94.2 % (42-75); PLATELET COUNT 131 X10'3 (140-440); RED BLOOD COUNT 2.38 X10'6 (4.70-6.10); RED CELL DISTRIBUTION WIDTH 15.6 % (11.5-14.5); WHITE BLOOD COUNT 12.8 X10'3 (4.5-11.0)
[2020-03-21 02:24] LABS: PARTIAL THROMBOPLASTIN TIME 26 SECONDS (22-32)
[2020-03-21 02:28] LABS: ALANINE AMINOTRANSFERASE 22 U/L (12-78); ALBUMIN 3.4 G/DL (3.4-5.0); ALBUMIN/GLOBULIN RATIO 1.9 (1.1-1.5); ALKALINE PHOSPHATASE 29 IU/L (46-116); ANION GAP 6 (8-16); ASPARTATE AMINO TRANSFERASE 40 U/L (10-37); BILIRUBIN,TOTAL 1.2 MG/DL (0.1-1.0); BLOOD UREA NITROGEN 18 MG/DL (7-18); BUN/CREATININE RATIO 12.8 (5.4-32.0); CALCIUM 7.5 MG/DL (8.5-10.1); CREATININE 1.41 MG/DL (0.60-1.10); GLUCOSE 155 MG/DL (70-104); MAGNESIUM 2.5 MG/DL (1.5-2.4); POTASSIUM 4.2 MMOL/L (3.5-5.1); SODIUM 146 MMOL/L (135-145); TOTAL CARBON DIOXIDE 25.8 MMOL/L (24-32); TOTAL PROTEIN 5.2 G/DL (6.4-8.2); eGFR 50 ML/MIN
[2020-03-21 02:30] LABS: CHLORIDE 114 MMOL/L (99-107)
[2020-03-21] MEDS: potassium Cl 20mEq/100mL bag 100 ML IV PRN ×2 (02:50→04:20)
[2020-03-21 03:41] LABS: ABG BASE EXCESS -1.9 mmol/L (-2.0-2.0); ABG HCO3 22.2 mmol/L (22.0-26.0); ABG PCO2 (T) 35.9 mmHg (35.0-48.0); ABG PO2 (T) 100.7 mmHg (75.0-100.0); ALLEN'S TEST POSITIVE; FCOHb 0.3 % (0.0-3.9); FMetHb 0.3 % (0.0-1.5); FO2Hb 96.4 % (94-97); PATIENT TEMPERATURE 37.6; PEEP 5 cm H2O
--- NOTE | 2020-03-21 03:44 | NUR ---
Extubated patient to 4LNC w/RT without incident. Patient awake and alert, answering questions appropriately. Will continue to monitor
[2020-03-21] MEDS ORDERED: albumin (Human) 5% 250ml 250 ML IV ONE (05:30)
[2020-03-21] MEDS: morphine 4 MG/ML inj SYRINge IV PRN ×2 (06:02→10:48)
--- NOTE | 2020-03-21 06:27 | NUR ---
Problems reprioritized. Patient report given, questions answered & plan of care reviewed with Anupaam AMOR.
[2020-03-21] MEDS: mupirocin 2% nasal ointment 1gm UD NS SCH ×2 (07:23→20:37)
[2020-03-21] MEDS: sennosides/docusate sodium tablet PO SCH ×2 (07:23→20:37)
[2020-03-21] MEDS: amiodarone 100mg tablet PO SCH (07:23)
[2020-03-21] MEDS: gabapentin 300mg capsule PO SCH ×3 (07:24→20:38)
[2020-03-21] MEDS ORDERED: aspirin 325mg tablet, delayed-release (Ecotrin) PO SCH (08:00)
[2020-03-21] MEDS ORDERED: atorvastatin 20mg tablet PO SCH (08:00)
[2020-03-21] MEDS ORDERED: metoprolol tartrate 12.5mg (1/2 tablet) PO SCH (08:00)
[2020-03-21] MEDS ORDERED: SAW PALMETTO 160 MG PO SCH (08:00)
[2020-03-21] MEDS: vancomycin/NS 1 GM ADD-VANTAGE 250 ML IV SCH ×2 (08:26→20:37)
--- NOTE | 2020-03-21 11:30 | NUR ---
Nutrition consult received pt s/p CABG x3 and MVR; will need written post cardiac surgery diet education handout with verbal review and written heart healthy diet education handout with verbal review. Addendum: 03/21/20 at [address] Amended: Links added.
[2020-03-21] MEDS ORDERED: ondansetron 4mg rapidly disintigrating tab PO PRN (11:50)
[2020-03-21] MEDS: mineral oil/petrolatum ophthal oint EACHEYE SCH ×3 (12:41→18:37)
[2020-03-21] MEDS: Insulin Reg/NS 100units/100mL 100 ML IV SCH (13:26)
[2020-03-21] MEDS: NORepinephrine 8mg/ 250ml NS 250 ML IV PRN (13:56)
[2020-03-21 14:58] LABS: HEMATOCRIT 24.2 % (42.0-52.0); HEMOGLOBIN 7.9 g/dl (14.0-17.9); MEAN CORPUSCULAR HEMOGLOBIN 30.9 PG (27.0-31.0); MEAN CORPUSCULAR HGB CONC 32.8 g/dL (33.0-36.5); MEAN CORPUSCULAR VOLUME 94.2 FL (78-98); MEAN PLATELET VOLUME 10.4 FL (7.4-10.4); PLATELET COUNT 118 X10'3 (140-440); RED BLOOD COUNT 2.57 X10'6 (4.70-6.10); RED CELL DISTRIBUTION WIDTH 16.1 % (11.5-14.5); WHITE BLOOD COUNT 18.1 X10'3 (4.5-11.0)
--- NOTE | 2020-03-21 17:05 | NUR ---
Pt feeling diaphoretic, cold to touch, nauseated, shaky and SOB this afternoon, Blood pressure in low 90s, Blood sugar 168, H&H 7.9-24, chest x-ray with no abnormalities. Started pt on Levophed per RIJ line. pt started feeling better soon after. Zofran given. Called Dr. Cruz, He came to see pt at bedside. Pt back to normal, resting well. Denies any discomfort.
[2020-03-21] MEDS ORDERED: glucagon, human recombinant 1mg kit SUBCUT PRN (17:55)
[2020-03-21] MEDS ORDERED: dextrose 50%-water 50ml dispensing syringe IV PRN ×2 (17:55)
[2020-03-21] MEDS ORDERED: dextrose ORAL solution 15 GM/59 ML bottle PO PRN ×2 (17:55)
[2020-03-21] MEDS ORDERED: MESSAGE TO PHARMACY PO ONE (17:55)
--- NOTE | 2020-03-21 18:30 | NUR ---
Patient in room ICU 2043. I have received report from ZULEYMA Altman and had the opportunity to ask questions and assume patient care.
--- NOTE | 2020-03-21 18:31 | NUR ---
Problems reprioritized. Patient report given, questions answered & plan of care reviewed with Mayra.
[2020-03-21] MEDS: insulin Lispro (HumaLOG) vial - multi-dose SQ SCH (19:23)
[2020-03-21] MEDS: carVEDilol 3.125mg tablet PO SCH (20:00)
[2020-03-21] MEDS: lactobacillus rhamnosus 10,000 MMU CELLS/CAPSULE PO SCH (20:37)
[2020-03-21] MEDS: atorvastatin 20mg tablet PO SCH (20:38)
[2020-03-21] MEDS: insulin glargine (Lantus) pen - multi-dose SQ SCH (20:45)
--- NOTE | 2020-03-21 22:44 | NUR ---
Patient up and sitting on the side of the bed, stood up for a couple of minutes. SBP dropped to 80s, levo increased. Patient states that he does not feel dizzy and feels fine. Chest tube output was 160mL. Patient placed back into bed, too weak to walk to chair. Addendum: 03/21/20 at 2307 by Mayra Calixto RN 110 mL out of chest tube
[2020-03-22] VITALS (29 sets, daily range): BP systolic 95–133; BP diastolic 42–93
[2020-03-22] MEDS: ceFAZolin 1GM/D5W- ADD-VANTAGE 50 ML IV SCH (00:10)
[2020-03-22 04:26] LABS: BASOPHILS % (AUTO) 0.1 % (0-1); EOSINOPHILS % (AUTO) 0 % (0-6); HEMATOCRIT 22.3 % (42.0-52.0); HEMOGLOBIN 7.5 g/dl (14.0-17.9); LYMPHOCYTES # (AUTO) 0.8 X10'3 (1.1-4.8); MEAN CORPUSCULAR HEMOGLOBIN 31.2 PG (27.0-31.0); MEAN CORPUSCULAR HGB CONC 33.6 g/dL (33.0-36.5); MEAN CORPUSCULAR VOLUME 92.6 FL (78-98); MEAN PLATELET VOLUME 10.5 FL (7.4-10.4); MONOCYTES % (AUTO) 5.8 % (2-12); NEUTROPHILS % (AUTO) 89.1 % (42-75); PLATELET COUNT 104 X10'3 (140-440); RED BLOOD COUNT 2.41 X10'6 (4.70-6.10); RED CELL DISTRIBUTION WIDTH 15.5 % (11.5-14.5); WHITE BLOOD COUNT 16.8 X10'3 (4.5-11.0)
[2020-03-22 04:32] LABS: ALBUMIN 3.2 G/DL (3.4-5.0); ANION GAP 7 (8-16); BLOOD UREA NITROGEN 29 MG/DL (7-18); BUN/CREATININE RATIO 18.1 (5.4-32.0); CALCIUM 7.3 MG/DL (8.5-10.1); CHLORIDE 105 MMOL/L (99-107); GLUCOSE 166 MG/DL (70-104); MAGNESIUM 2.3 MG/DL (1.5-2.4); PHOSPHORUS 3.1 MG/DL (2.3-4.5); POTASSIUM 5.1 MMOL/L (3.5-5.1); SODIUM 136 MMOL/L (135-145); TOTAL CARBON DIOXIDE 24.2 MMOL/L (24-32); eGFR 43 ML/MIN
--- NOTE | 2020-03-22 06:28 | NUR ---
Problems reprioritized. Patient report given, questions answered & plan of care reviewed with ZULEYMA Cohen.
[2020-03-22] MEDS: HYDROcodone/acetaminophen 10/325mg tab PO PRN (07:54)
[2020-03-22] MEDS: carVEDilol 3.125mg tablet PO SCH ×2 (08:00→20:00)
[2020-03-22] MEDS: mineral oil/petrolatum ophthal oint EACHEYE SCH ×3 (08:00→20:00)
[2020-03-22] MEDS: pantoprazole 40mg Tablet.DR PO SCH (08:19)
[2020-03-22] MEDS: lactobacillus rhamnosus 10,000 MMU CELLS/CAPSULE PO SCH ×2 (08:20→21:14)
[2020-03-22] MEDS: gabapentin 300mg capsule PO SCH (08:20)
[2020-03-22] MEDS: amiodarone 100mg tablet PO SCH (08:20)
[2020-03-22] MEDS: sennosides/docusate sodium tablet PO SCH ×2 (08:20→21:14)
[2020-03-22] MEDS: mupirocin 2% nasal ointment 1gm UD NS SCH (08:24)
[2020-03-22] MEDS ORDERED: furosemide 20 MG/2 ML vial IV ONE (08:30)
[2020-03-22] MEDS: insulin Lispro (HumaLOG) vial - multi-dose SQ SCH ×3 (08:40→18:48)
[2020-03-22] MEDS ORDERED: furosemide 40mg/4ml inj IV ONE (09:10)
[2020-03-22 09:47] LABS: BASOPHILS % (AUTO) 0.1 % (0-1); EOSINOPHILS % (AUTO) 0 % (0-6); HEMATOCRIT 22.9 % (42.0-52.0); HEMOGLOBIN 7.7 g/dl (14.0-17.9); LYMPHOCYTES # (AUTO) 0.6 X10'3 (1.1-4.8); LYMPHOCYTES % (AUTO) 3.2 % (21-51); MEAN CORPUSCULAR HEMOGLOBIN 31.2 PG (27.0-31.0); MEAN CORPUSCULAR HGB CONC 33.3 g/dL (33.0-36.5); MEAN CORPUSCULAR VOLUME 93.5 FL (78-98); MEAN PLATELET VOLUME 10.7 FL (7.4-10.4); MONOCYTES # (AUTO) 0.8 X10'3 (0-0.9); MONOCYTES % (AUTO) 4.1 % (2-12); NEUTROPHILS # (AUTO) 17.3 X10'3 (1.8-7.7); NEUTROPHILS % (AUTO) 92.6 % (42-75); PLATELET COUNT 113 X10'3 (140-440); RED BLOOD COUNT 2.45 X10'6 (4.70-6.10); RED CELL DISTRIBUTION WIDTH 15.2 % (11.5-14.5); WHITE BLOOD COUNT 18.7 X10'3 (4.5-11.0)
[2020-03-22] MEDS: aspirin 81mg tablet.DR PO SCH (09:58)
[2020-03-22 09:59] LABS: ALANINE AMINOTRANSFERASE 216 U/L (12-78); ALBUMIN 3.4 G/DL (3.4-5.0); ALBUMIN/GLOBULIN RATIO 1.7 (1.1-1.5); ALKALINE PHOSPHATASE 36 IU/L (46-116); ANION GAP 9 (8-16); ASPARTATE AMINO TRANSFERASE 251 U/L (10-37); BILIRUBIN,TOTAL 1.3 MG/DL (0.1-1.0); BLOOD UREA NITROGEN 32 MG/DL (7-18); BUN/CREATININE RATIO 18.2 (5.4-32.0); CALCIUM 7.5 MG/DL (8.5-10.1); CHLORIDE 102 MMOL/L (99-107); CREATININE 1.76 MG/DL (0.60-1.10); GLUCOSE 199 MG/DL (70-104); POTASSIUM 5.1 MMOL/L (3.5-5.1); SODIUM 134 MMOL/L (135-145); TOTAL CARBON DIOXIDE 23.5 MMOL/L (24-32); TOTAL PROTEIN 5.4 G/DL (6.4-8.2); eGFR 38 ML/MIN
[2020-03-22] MEDS: NORepinephrine 8mg/ 250ml NS 250 ML IV PRN (12:14)
[2020-03-22] MEDS: sodium chloride 0.45% 1,000 ML IV SCH ×2 (12:19→17:09)
[2020-03-22 15:12] LABS: HEMATOCRIT 27.6 % (42.0-52.0); HEMOGLOBIN 9.3 g/dl (14.0-17.9); MEAN CORPUSCULAR HEMOGLOBIN 31.3 PG (27.0-31.0); MEAN CORPUSCULAR HGB CONC 33.6 g/dL (33.0-36.5); MEAN CORPUSCULAR VOLUME 93.1 FL (78-98); MEAN PLATELET VOLUME 11.2 FL (7.4-10.4); PLATELET COUNT 99 X10'3 (140-440); RED BLOOD COUNT 2.96 X10'6 (4.70-6.10); RED CELL DISTRIBUTION WIDTH 14.9 % (11.5-14.5); WHITE BLOOD COUNT 21.8 X10'3 (4.5-11.0)
[2020-03-22 15:23] LABS: PARTIAL THROMBOPLASTIN TIME 21 SECONDS (22-32)
--- NOTE | 2020-03-22 18:11 | NUR ---
Problems reprioritized. Patient report given, questions answered & plan of care reviewed with Kenny AMOR.
[2020-03-22] MEDS: atorvastatin 20mg tablet PO SCH (21:14)
[2020-03-22] MEDS: insulin glargine (Lantus) pen - multi-dose SQ SCH (21:17)
[2020-03-23] VITALS (23 sets, daily range): BP systolic 93–127; BP diastolic 44–62
[2020-03-23] MEDS: mineral oil/petrolatum ophthal oint EACHEYE SCH ×5 (02:00→18:42)
[2020-03-23 03:24] LABS: BASOPHILS % (AUTO) 0.2 % (0-1); EOSINOPHILS % (AUTO) 0 % (0-6); HEMOGLOBIN 8.5 g/dl (14.0-17.9); LYMPHOCYTES # (AUTO) 0.9 X10'3 (1.1-4.8); LYMPHOCYTES % (AUTO) 6.7 % (21-51); MEAN CORPUSCULAR HEMOGLOBIN 31.2 PG (27.0-31.0); MEAN CORPUSCULAR VOLUME 91.9 FL (78-98); MEAN PLATELET VOLUME 10.4 FL (7.4-10.4); MONOCYTES # (AUTO) 0.9 X10'3 (0-0.9); MONOCYTES % (AUTO) 6.3 % (2-12); NEUTROPHILS # (AUTO) 12.1 X10'3 (1.8-7.7); NEUTROPHILS % (AUTO) 86.8 % (42-75); PLATELET COUNT 82 X10'3 (140-440); RED BLOOD COUNT 2.72 X10'6 (4.70-6.10); RED CELL DISTRIBUTION WIDTH 14.6 % (11.5-14.5)
[2020-03-23 03:34] LABS: ANION GAP 7 (8-16); BLOOD UREA NITROGEN 35 MG/DL (7-18); BUN/CREATININE RATIO 22.6 (5.4-32.0); CALCIUM 7.5 MG/DL (8.5-10.1); CHLORIDE 102 MMOL/L (99-107); CREATININE 1.55 MG/DL (0.60-1.10); GLUCOSE 120 MG/DL (70-104); MAGNESIUM 2.4 MG/DL (1.5-2.4); PHOSPHORUS 2.6 MG/DL (2.3-4.5); SODIUM 133 MMOL/L (135-145); TOTAL CARBON DIOXIDE 24.3 MMOL/L (24-32); eGFR 44 ML/MIN
[2020-03-23] MEDS: aspirin 81mg tablet.DR PO SCH (07:13)
[2020-03-23] MEDS: amiodarone 100mg tablet PO SCH (07:14)
[2020-03-23] MEDS: pantoprazole 40mg Tablet.DR PO SCH (07:14)
[2020-03-23] MEDS: lactobacillus rhamnosus 10,000 MMU CELLS/CAPSULE PO SCH ×2 (07:14→20:35)
[2020-03-23] MEDS: HYDROcodone/acetaminophen 10/325mg tab PO PRN ×2 (07:14→21:15)
[2020-03-23] MEDS: sennosides/docusate sodium tablet PO SCH ×2 (07:14→20:35)
[2020-03-23] MEDS: carVEDilol 3.125mg tablet PO SCH ×2 (07:16→20:00)
[2020-03-23] MEDS ORDERED: furosemide 40mg/4ml inj IV ONE (08:30)
[2020-03-23] MEDS: insulin Lispro (HumaLOG) vial - multi-dose SQ SCH ×3 (09:18→19:35)
--- NOTE | 2020-03-23 18:21 | NUR ---
Problems reprioritized. Patient report given, questions answered & plan of care reviewed with Mayra.
--- NOTE | 2020-03-23 18:30 | NUR ---
Patient in room ICU 2043. I have received report from ZULEYMA Altman and had the opportunity to ask questions and assume patient care.
[2020-03-23] MEDS: atorvastatin 20mg tablet PO SCH (20:36)
[2020-03-23] MEDS: insulin glargine (Lantus) pen - multi-dose SQ SCH (20:43)
--- NOTE | 2020-03-23 21:38 | NUR ---
Called Dr Cruz regarding pt's heart rhythm changing from sinus back to A-Fib. Irregular rate remains 70s-90s, BP stable, Pt anxious about changes. Pt already receiving PO Amiodarone. No new orders at this time.
[2020-03-24] VITALS (23 sets, daily range): BP systolic 63–132; BP diastolic 45–67
[2020-03-24 04:00] LABS: BASOPHILS % (AUTO) 0.2 % (0-1); EOSINOPHILS % (AUTO) 0.2 % (0-6); HEMATOCRIT 25.7 % (42.0-52.0); HEMOGLOBIN 8.6 g/dl (14.0-17.9); LYMPHOCYTES # (AUTO) 1.6 X10'3 (1.1-4.8); LYMPHOCYTES % (AUTO) 13.8 % (21-51); MEAN CORPUSCULAR HGB CONC 33.4 g/dL (33.0-36.5); MEAN CORPUSCULAR VOLUME 92.8 FL (78-98); MEAN PLATELET VOLUME 10.3 FL (7.4-10.4); MONOCYTES # (AUTO) 0.6 X10'3 (0-0.9); MONOCYTES % (AUTO) 5.7 % (2-12); NEUTROPHILS % (AUTO) 80.1 % (42-75); PLATELET COUNT 82 X10'3 (140-440); RED BLOOD COUNT 2.77 X10'6 (4.70-6.10); RED CELL DISTRIBUTION WIDTH 14.5 % (11.5-14.5); WHITE BLOOD COUNT 11.3 X10'3 (4.5-11.0)
[2020-03-24 04:07] LABS: ALBUMIN 2.8 G/DL (3.4-5.0); ANION GAP 5 (8-16); BLOOD UREA NITROGEN 33 MG/DL (7-18); BUN/CREATININE RATIO 23.7 (5.4-32.0); CALCIUM 7.4 MG/DL (8.5-10.1); CHLORIDE 102 MMOL/L (99-107); CREATININE 1.39 MG/DL (0.60-1.10); GLUCOSE 102 MG/DL (70-104); MAGNESIUM 2.4 MG/DL (1.5-2.4); PHOSPHORUS 2.5 MG/DL (2.3-4.5); POTASSIUM 4.2 MMOL/L (3.5-5.1); SODIUM 134 MMOL/L (135-145); eGFR 50 ML/MIN
[2020-03-24] MEDS: potassium Cl 20mEq/100mL bag 100 ML IV PRN ×2 (05:18→06:53)
--- NOTE | 2020-03-24 06:35 | NUR ---
Problems reprioritized. Patient report given, questions answered & plan of care reviewed with ZULEYMA Rhodes.
[2020-03-24] MEDS: pantoprazole 40mg Tablet.DR PO SCH (08:22)
[2020-03-24] MEDS: lactobacillus rhamnosus 10,000 MMU CELLS/CAPSULE PO SCH ×2 (08:22→20:00)
[2020-03-24] MEDS: amiodarone 100mg tablet PO SCH (08:22)
[2020-03-24] MEDS: sennosides/docusate sodium tablet PO SCH ×2 (08:22→20:00)
[2020-03-24] MEDS: aspirin 81mg tablet.DR PO SCH (08:22)
[2020-03-24] MEDS: mineral oil/petrolatum ophthal oint EACHEYE SCH ×3 (08:23→19:25)
[2020-03-24] MEDS: insulin Lispro (HumaLOG) vial - multi-dose SQ SCH ×3 (09:10→19:27)
[2020-03-24] MEDS: HYDROcodone/acetaminophen 10/325mg tab PO PRN ×2 (09:13→17:18)
[2020-03-24] MEDS ORDERED: amiodarone 150mg/dext, iso-os 100 ML IV ONE (09:40)
[2020-03-24] MEDS: amiodarone/D5 360MG/200ML BAG 200 ML IV SCH ×3 (09:49→17:26)
[2020-03-24] MEDS ORDERED: furosemide 40mg/4ml inj IV ONE (09:50)
--- NOTE | 2020-03-24 10:35 | NUR ---
Initial: Pt s/p CABGx3 and MVR PO continues to improve overall 50% avg meals w/ 75% more recent meals. LBM 03/21. Pt seen by RD for written/verbal CABG/HH diet eds w/ RD contact information provided. Pt declines ONS or other protein foods w/ meals; endorses appetite improving and almost all of breakfast tray empty during RD visit. Pt does reports dislikes milk to drink; dietary notified. RD encouraged pt to contact dietitian's office if further questions. Will continue to monitor. Rec: 1. advance diet as medically indicated to heart healthy 2. honor pt food preferences; no ONS; no milk to drink 3. routine bowel care 4. wt per rx Addendum: 03/24/20 at [address]38 [address] Jose D Álvarez RD Amended: Links added.
--- NOTE | 2020-03-24 18:30 | NUR ---
Patient in room ICU 2043. I have received report from Meagan AMOR and had the opportunity to ask questions and assume patient care. Addendum: 03/24/20 at 1920 by Stephanie Espinoza RN Amended: Links added.
[2020-03-24] MEDS: carVEDilol 3.125mg tablet PO SCH (20:00)
[2020-03-24] MEDS: sodium chloride 0.45% 1,000 ML IV SCH (20:01)
[2020-03-24] MEDS: insulin glargine (Lantus) pen - multi-dose SQ SCH (21:57)
[2020-03-24] MEDS: atorvastatin 20mg tablet PO SCH (21:58)
[2020-03-25] VITALS (24 sets, daily range): BP systolic 108–148; BP diastolic 57–88
[2020-03-25] MEDS: amiodarone/D5 360MG/200ML BAG 200 ML IV SCH (02:34)
[2020-03-25 03:13] LABS: BASOPHILS % (AUTO) 0.1 % (0-1); EOSINOPHILS # (AUTO) 0.1 X10'3 (0-0.9); EOSINOPHILS % (AUTO) 0.8 % (0-6); HEMATOCRIT 26.8 % (42.0-52.0); LYMPHOCYTES # (AUTO) 1.4 X10'3 (1.1-4.8); LYMPHOCYTES % (AUTO) 11.1 % (21-51); MEAN CORPUSCULAR HEMOGLOBIN 31.4 PG (27.0-31.0); MEAN CORPUSCULAR HGB CONC 33.5 g/dL (33.0-36.5); MEAN CORPUSCULAR VOLUME 93.5 FL (78-98); MEAN PLATELET VOLUME 10.5 FL (7.4-10.4); MONOCYTES # (AUTO) 0.9 X10'3 (0-0.9); MONOCYTES % (AUTO) 7.3 % (2-12); NEUTROPHILS # (AUTO) 9.9 X10'3 (1.8-7.7); NEUTROPHILS % (AUTO) 80.7 % (42-75); PLATELET COUNT 101 X10'3 (140-440); RED BLOOD COUNT 2.87 X10'6 (4.70-6.10); RED CELL DISTRIBUTION WIDTH 14.3 % (11.5-14.5); WHITE BLOOD COUNT 12.2 X10'3 (4.5-11.0)
[2020-03-25 03:40] LABS: ALBUMIN 2.8 G/DL (3.4-5.0); ANION GAP 6 (8-16); BLOOD UREA NITROGEN 28 MG/DL (7-18); BUN/CREATININE RATIO 20.9 (5.4-32.0); CALCIUM 7.8 MG/DL (8.5-10.1); CHLORIDE 101 MMOL/L (99-107); CREATININE 1.34 MG/DL (0.60-1.10); GLUCOSE 99 MG/DL (70-104); MAGNESIUM 2.3 MG/DL (1.5-2.4); PHOSPHORUS 2.7 MG/DL (2.3-4.5); POTASSIUM 4.3 MMOL/L (3.5-5.1); SODIUM 133 MMOL/L (135-145); TOTAL CARBON DIOXIDE 25.7 MMOL/L (24-32); eGFR 53 ML/MIN
[2020-03-25] MEDS: HYDROcodone/acetaminophen 10/325mg tab PO PRN ×2 (04:57→16:04)
[2020-03-25] MEDS: potassium Cl 20mEq/100mL bag 100 ML IV PRN (05:15)
--- NOTE | 2020-03-25 06:34 | NUR ---
Problems reprioritized. Patient report given, questions answered & plan of care reviewed with Anupama AMOR.
[2020-03-25] MEDS: pantoprazole 40mg Tablet.DR PO SCH (07:24)
[2020-03-25] MEDS: amiodarone 200mg tablet PO SCH (07:24)
[2020-03-25] MEDS: aspirin 81mg tablet.DR PO SCH (07:24)
[2020-03-25] MEDS: sennosides/docusate sodium tablet PO SCH ×2 (07:24→20:22)
[2020-03-25] MEDS: lactobacillus rhamnosus 10,000 MMU CELLS/CAPSULE PO SCH ×2 (07:25→20:23)
[2020-03-25] MEDS: carVEDilol 3.125mg tablet PO SCH ×2 (08:00→20:23)
[2020-03-25] MEDS: insulin Lispro (HumaLOG) vial - multi-dose SQ SCH (08:29)
[2020-03-25] MEDS ORDERED: furosemide 40mg/4ml inj IV ONE (08:35)
[2020-03-25] MEDS ORDERED: magnesium 2GM in 50ml NS 50 ML IV PRN (08:55)
[2020-03-25] MEDS ORDERED: potassium Cl 20 mEq SR tablet PO PRN (08:55)
[2020-03-25] MEDS ORDERED: magnesium 4gm in 100ml NS 100 ML IV PRN (08:55)
[2020-03-25] MEDS ORDERED: potassium Cl 20mEq/100mL bag 100 ML IV PRN (08:55)
--- NOTE | 2020-03-25 17:56 | NUR ---
Sanchez catheter removed at 1600, no urination yet. Pt sitting in chair, comfortable.
--- NOTE | 2020-03-25 18:48 | NUR ---
Problems reprioritized. Patient report given, questions answered & plan of care reviewed with
[2020-03-25] MEDS: magnesium Cl slow-release 64mg tablet PO SCH (20:21)
[2020-03-25] MEDS: potassium Cl 20 mEq SR tablet PO SCH (20:23)
[2020-03-25] MEDS: atorvastatin 20mg tablet PO SCH (20:24)
[2020-03-26] VITALS (10 sets, daily range): BP systolic 99–136; BP diastolic 42–76
[2020-03-26] MEDS: HYDROcodone/acetaminophen 10/325mg tab PO PRN (01:22)
[2020-03-26 06:08] LABS: BASOPHILS % (AUTO) 0.1 % (0-1); EOSINOPHILS # (AUTO) 0.1 X10'3 (0-0.9); EOSINOPHILS % (AUTO) 1.1 % (0-6); HEMATOCRIT 26.2 % (42.0-52.0); HEMOGLOBIN 8.7 g/dl (14.0-17.9); MEAN CORPUSCULAR HEMOGLOBIN 31.3 PG (27.0-31.0); MEAN CORPUSCULAR HGB CONC 33.3 g/dL (33.0-36.5); MEAN PLATELET VOLUME 10.1 FL (7.4-10.4); MONOCYTES # (AUTO) 0.8 X10'3 (0-0.9); MONOCYTES % (AUTO) 6.8 % (2-12); NEUTROPHILS # (AUTO) 9.3 X10'3 (1.8-7.7); PLATELET COUNT 120 X10'3 (140-440); RED BLOOD COUNT 2.79 X10'6 (4.70-6.10); RED CELL DISTRIBUTION WIDTH 14.4 % (11.5-14.5); WHITE BLOOD COUNT 11.2 X10'3 (4.5-11.0)
[2020-03-26 06:25] LABS: ALBUMIN 2.6 G/DL (3.4-5.0); ANION GAP 6 (8-16); BLOOD UREA NITROGEN 25 MG/DL (7-18); CALCIUM 7.9 MG/DL (8.5-10.1); CHLORIDE 102 MMOL/L (99-107); CREATININE 1.39 MG/DL (0.60-1.10); GLUCOSE 96 MG/DL (70-104); MAGNESIUM 2.1 MG/DL (1.5-2.4); PHOSPHORUS 2.8 MG/DL (2.3-4.5); POTASSIUM 4.7 MMOL/L (3.5-5.1); SODIUM 135 MMOL/L (135-145); eGFR 50 ML/MIN
--- NOTE | 2020-03-26 07:00 | NUR ---
Patient in room ICU 2043. I have received report from Gary AMOR and had the opportunity to ask questions and assume patient care. Addendum: 03/26/20 at 0700 by Divya Torres RN Amended: Links added.
[2020-03-26] MEDS ORDERED: SENN-166 PO (07:53)
[2020-03-26] MEDS: amiodarone 200mg tablet PO SCH (07:53)
[2020-03-26] MEDS ORDERED: AMIO200T61 PO (07:53)
[2020-03-26] MEDS: aspirin 81mg tablet.DR PO SCH (07:53)
[2020-03-26] MEDS: potassium Cl 20 mEq SR tablet PO SCH (07:53)
[2020-03-26] MEDS: sennosides/docusate sodium tablet PO SCH (07:53)
[2020-03-26] MEDS: magnesium Cl slow-release 64mg tablet PO SCH (07:53)
[2020-03-26] MEDS: carVEDilol 3.125mg tablet PO SCH (07:53)
[2020-03-26] MEDS: lactobacillus rhamnosus 10,000 MMU CELLS/CAPSULE PO SCH (07:53)
[2020-03-26] MEDS: pantoprazole 40mg Tablet.DR PO SCH (07:53)
[2020-03-26] MEDS ORDERED: FURO-150 PO (08:30)
--- NOTE | 2020-03-26 09:35 | NUR ---
Dr. Cruz was in earlier to discharge pt. RN notified him of pt's LLE wounds that are bleeding/draining with blisters. Sent pt. home with dressing supplies and instructions on dressing changes. Pt. dc'd home in stable condition with new dry dressing to LLE. Pt. taken to friend's car via w/c with all belongings.
== END 2020-03-26 09:30 | disposition home or self-care (01) | DRG 219 ==
LOC: PAS IN 05:14 → UNDOADMIN 05:14 → EDSTATUS 07:30 → ICU 2S 12:24 → PAS IN 12:24
PROVIDERS: ADMIT Thoracic Surgery (Cardiothoracic Vascular Surgery); ATTEND Thoracic Surgery (Cardiothoracic Vascular Surgery)
PROC: 02QG0ZZ Repair Mitral Valve, Open Approach (ICD-10-PCS; 2020-03-20)
PROC: 021109W Bypass Coronary Artery, Two Arteries from Aorta with Autologous Venous Tissue, Open Approach (ICD-10-PCS; 2020-03-20)
PROC: 06BQ4ZZ Excision of Left Saphenous Vein, Percutaneous Endoscopic Approach (ICD-10-PCS; 2020-03-20)
PROC: 02UG08Z Supplement Mitral Valve with Zooplastic Tissue, Open Approach (ICD-10-PCS; 2020-03-20)
PROC: B24BZZ4 Ultrasonography of Heart with Aorta, Transesophageal (ICD-10-PCS; 2020-03-20)
PROC: 02L70CK Occlusion of Left Atrial Appendage with Extraluminal Device, Open Approach (ICD-10-PCS; 2020-03-20)
PROC: 5A1221Z Performance of Cardiac Output, Continuous (ICD-10-PCS; 2020-03-20)
PROC: 30233M1 Transfusion of Nonautologous Plasma Cryoprecipitate into Peripheral Vein, Percutaneous Approach (ICD-10-PCS; 2020-03-20)
PROC: 30233R1 Transfusion of Nonautologous Platelets into Peripheral Vein, Percutaneous Approach (ICD-10-PCS; 2020-03-20)
PROC: 30233N1 Transfusion of Nonautologous Red Blood Cells into Peripheral Vein, Percutaneous Approach (ICD-10-PCS; 2020-03-20)
PROC: 03HY32Z Insertion of Monitoring Device into Upper Artery, Percutaneous Approach (ICD-10-PCS; 2020-03-20)
PROC: 4A133B1 Monitoring of Arterial Pressure, Peripheral, Percutaneous Approach (ICD-10-PCS; 2020-03-20)
PROC: 4A133J1 Monitoring of Arterial Pulse, Peripheral, Percutaneous Approach (ICD-10-PCS; 2020-03-20)
PROC: 02HV33Z Insertion of Infusion Device into Superior Vena Cava, Percutaneous Approach (ICD-10-PCS; 2020-03-20)
PROC: B548ZZA Ultrasonography of Superior Vena Cava, Guidance (ICD-10-PCS; 2020-03-20)
PROC: 02100Z9 Bypass Coronary Artery, One Artery from Left Internal Mammary, Open Approach (ICD-10-PCS; principal; 2020-03-20 06:55)
DX: I25.110 Atherosclerotic heart disease of native coronary artery with unstable angina pectoris (principal); N17.0 Acute kidney failure with tubular necrosis; I13.0 Hypertensive heart and chronic kidney disease with heart failure and stage 1 through stage 4 chronic kidney disease, or unspecified chronic kidney disease; I50.22 Chronic systolic (congestive) heart failure; D68.9 Coagulation defect, unspecified; D62 Acute posthemorrhagic anemia; N18.3 Chronic kidney disease, stage 3 (moderate); I25.5 Ischemic cardiomyopathy; Z20.828 Contact with and (suspected) exposure to other viral communicable diseases; R68.2 Dry mouth, unspecified; I48.0 Paroxysmal atrial fibrillation; I34.0 Nonrheumatic mitral (valve) insufficiency; E78.5 Hyperlipidemia, unspecified; F17.210 Nicotine dependence, cigarettes, uncomplicated; F43.10 Post-traumatic stress disorder, unspecified; I25.2 Old myocardial infarction; Z79.01 Long term (current) use of anticoagulants; Z98.61 Coronary angioplasty status
CPT/HCPCS: 0232T; 93308; 93312; 93325; 36415; 36430; 36600; 71045; 71046; 80048; 80053; 81001; 82330; 82435; 82803; 82947; 82948; 83036; 83735; 84100; 84132; 84295; 85018; 85025; 85027; 85347; 85384; 85610; 85730; 86885; 86900; 86901; 86920; 87081; 87635; 93005; 93880; 93970; 94002; 94003; 94010; 94668; 94760; 97110; 97116; 97162; 97530; 97535; A4618; A6258; A6402; A6449; A7000; A7048; C1713; C1751; C9113; G0378; J0461; J0690; J1265; J1644; J1815; J1940; J2001; J2060; J2150; J2250; J2270; J2370; J2405; J2440; J2597; J2704; J2930; J3370; J3480; J3490; J7030; J7040; J7050; J7060; J7120; P9012; P9016; P9035; P9045; P9047

== ENCOUNTER 2020-03-31 22:34 | Inpatient (IN) | payer OTHER, MEDICARE ==
[~2020-03-31] VITALS: Ht 175.3 cm; Wt 77.2 kg
[~2020-03-31 22:34] MED LIST changes: -AMIO100T4 PO; +AMIO200T61 PO; +FURO-150 PO; -NITR0.4T51 SL; +SENN-166 PO; -VALS80TA2 PO; -albuterol 2.5 MG/3 ML nebule NEB ONE; -ceFAZolin 1000mg inj ONE; -ringers solution, lacted 1,000 ML IV SCH
[2020-03-31] MEDS ORDERED: diltiazem 5mg/ml 5ml inj. IV ONE ×2 (22:50→23:55)
[2020-03-31] MEDS ORDERED: diltiazem-D5W 125mg/125ml 125 ML IV SCH (22:50)
[2020-03-31] MEDS ORDERED: diltiazem-NS 100mg/100ml 100 ML IV SCH (23:05)
[2020-03-31 23:17] LABS: BASOPHILS # (AUTO) 0.2 X10'3 (0-0.2); EOSINOPHILS # (AUTO) 0.1 X10'3 (0-0.9); EOSINOPHILS % (AUTO) 0.6 % (0-6); HEMATOCRIT 31.4 % (42.0-52.0); HEMOGLOBIN 10.2 g/dl (14.0-17.9); LYMPHOCYTES % (AUTO) 6.1 % (21-51); MEAN CORPUSCULAR HEMOGLOBIN 30.8 PG (27.0-31.0); MEAN CORPUSCULAR HGB CONC 32.4 g/dL (33.0-36.5); MEAN PLATELET VOLUME 8.7 FL (7.4-10.4); MONOCYTES # (AUTO) 0.7 X10'3 (0-0.9); MONOCYTES % (AUTO) 4.5 % (2-12); NEUTROPHILS # (AUTO) 14.7 X10'3 (1.8-7.7); NEUTROPHILS % (AUTO) 87.8 % (42-75); PLATELET COUNT 261 X10'3 (140-440); RED CELL DISTRIBUTION WIDTH 15.3 % (11.5-14.5); WHITE BLOOD COUNT 16.8 X10'3 (4.5-11.0)
[2020-03-31 23:29] LABS: ALANINE AMINOTRANSFERASE 85 U/L (12-78); ALBUMIN 3.1 G/DL (3.4-5.0); ALKALINE PHOSPHATASE 66 IU/L (46-116); ANION GAP 10 (8-16); ASPARTATE AMINO TRANSFERASE 46 U/L (10-37); BILIRUBIN,TOTAL 2.4 MG/DL (0.1-1.0); BLOOD UREA NITROGEN 21 MG/DL (7-18); BUN/CREATININE RATIO 12.1 (5.4-32.0); CALCIUM 8.3 MG/DL (8.5-10.1); CHLORIDE 102 MMOL/L (99-107); CREATININE 1.73 MG/DL (0.60-1.10); GLUCOSE 118 MG/DL (70-104); SODIUM 136 MMOL/L (135-145); TOTAL CARBON DIOXIDE 24.1 MMOL/L (24-32); TOTAL PROTEIN 6.1 G/DL (6.4-8.2); eGFR 39 ML/MIN
[2020-03-31] MEDS ORDERED: aspirin 325mg tablet PO ONE (23:50)
[2020-03-31] MEDS ORDERED: furosemide 10 MG/1 ML 10ml inj IV ONE (23:55)
[2020-04-01] VITALS (7 sets, daily range): BP systolic 107–137; BP diastolic 61–72
--- NOTE | 2020-04-01 00:18 | NUR ---
Verbal order from Dr. Spencer to titrate cardizem to 10mg/hr.
[2020-04-01] MEDS ORDERED: ondansetron/PF 4mg/2ml inj IV PRN (00:20)
[2020-04-01] MEDS ORDERED: HYDROcodone/acetaminophen 10/325mg tab PO PRN (00:20)
[2020-04-01] MEDS ORDERED: HYDROcodone/acetaminophen 5mg/325mg tablet PO PRN (00:20)
[2020-04-01] MEDS ORDERED: mag hydrox/Alum hydrox/simeth 30ml oral suspension PO PRN (00:20)
[2020-04-01] MEDS ORDERED: magnesium hydroxide 30ml (MOM) UD suspension PO PRN (00:20)
[2020-04-01] MEDS ORDERED: morphine 2 MG/ML inj. syringe IV PRN ×2 (00:20)
[2020-04-01] MEDS ORDERED: enoxaparin 100mg/ml syringe SUBCUT ONE (00:20)
[2020-04-01] MEDS ORDERED: acetaminophen 325mg tablet PO PRN ×2 (00:20)
--- NOTE | 2020-04-01 00:45 | NUR ---
Patient in room ED 2. I have received report and had the opportunity to ask questions and assume patient care.
--- NOTE | 2020-04-01 00:57 | NUR ---
Patient arrived on unit from ED alert and oriented. Cardizem gtt running at 10. Two RN skin check preformed and MRSA swab obtained. Vital signs obtained- 100%- 20RR- 114HR- 129/60 Will continue to closely monitor and assess.
--- NOTE | 2020-04-01 05:25 | NUR ---
Paged Dr Rasmussen PAGER ID: [phone] MESSAGE: [phone] French Guillen Patient came up from ER on Cardizem gtt @10. I only have orders for 5gtt. ER doc verbalized to ER nurse to titrate 10gtt but no order electronically placed. May I have an order to put in for 10gtt? Carrie AMOR
--- NOTE | 2020-04-01 05:42 | NUR ---
Received verbal orders from Dr Rasmussen to give the patient 30mg PO Cardizem q6hr and then turn off the gtt 15-20minutes later.
[2020-04-01] MEDS ORDERED: AMIO200T61 PO (05:44)
[2020-04-01] MEDS ORDERED: FURO-150 PO (05:45)
[2020-04-01] MEDS ORDERED: SENN1TAB82 PO (05:46)
[2020-04-01] MEDS ORDERED: diltiazem 30mg tablet PO SCH (06:00)
--- NOTE | 2020-04-01 06:23 | NUR ---
Maria M gtt discontinued. Addendum: 04/01/20 at 0623 by Carrie Escalera RN Per Dr Grady esteban.
--- NOTE | 2020-04-01 06:25 | NUR ---
Problems reprioritized. Patient report given, questions answered & plan of care reviewed with Madyson AMOR.
--- NOTE | 2020-04-01 06:25 | NUR ---
Patient in room PCU 3016. I have received report from ZULEYMA Butler and had the opportunity to ask questions and assume patient care. Patient in bed awake. Offers no complaints. All immediate needs met at this time.
[2020-04-01] MEDS ORDERED: potassium CL 10mEq/100ml bag 100 ML IV PRN ×2 (09:10)
[2020-04-01] MEDS ORDERED: magnesium Cl slow-release 64mg tablet PO PRN (09:10)
[2020-04-01] MEDS ORDERED: potassium Cl 20 mEq SR tablet PO PRN ×2 (09:10)
[2020-04-01] MEDS ORDERED: magnesium 2GM in 50ml NS 50 ML IV PRN (09:10)
[2020-04-01] MEDS ORDERED: magnesium 4gm in 100ml NS 100 ML IV PRN (09:10)
--- NOTE | 2020-04-01 09:15 | NUR ---
New orders from Dr. De: Discontinue cardizem 30 mg PO Q6H, amiodarone 200 mg PO BID for 2 weeks then 200 PO daily, Lasix 40 mg IV daily, potassium 20 mEq daily, Coreg 6.25 BID with 3.125 PO once now, 1500 cc fluid restriction, low sodium diet, strict I/O, daily weights.
[2020-04-01] MEDS ORDERED: carVEDilol 3.125mg tablet PO ONE (09:30)
[2020-04-01] MEDS: furosemide 40mg/4ml inj IV SCH (10:24)
[2020-04-01] MEDS: carvedilol 6.25mg tablet PO SCH ×2 (10:25→21:41)
[2020-04-01] MEDS: apixaban 5mg tablet PO SCH ×2 (10:25→21:40)
[2020-04-01] MEDS: potassium Cl 20 mEq SR tablet PO SCH (10:25)
[2020-04-01] MEDS: amiodarone 200mg tablet PO SCH ×2 (10:25→21:40)
[2020-04-01] MEDS ORDERED: potassium Cl 20 mEq SR tablet PO STA (17:59)
[2020-04-01] MEDS ORDERED: furosemide 40mg/4ml inj IV ONE (18:00)
[2020-04-01] MEDS ORDERED: amiodarone 150mg/dext, iso-os 100 ML IV ONE (18:00)
--- NOTE | 2020-04-01 18:15 | NUR ---
Problems reprioritized. Patient report given, questions answered & plan of care reviewed with Abril AMOR. Patient stable at transfer of care.
--- NOTE | 2020-04-01 18:15 | NUR ---
New orders from Dr. De: Amiodarone IV 150 mg loading dose ONCE. Lasix 40 mg IV once. 20 mEq Potassium Once. NPO after midnight if patient is not in NSR.
--- NOTE | 2020-04-01 18:23 | NUR ---
Patient in room PCU 3016. I have received report from ZULEYMA Coughlin and had the opportunity to ask questions and assume patient care.
--- NOTE | 2020-04-01 18:30 | NUR ---
Patient in room PCU 3016. I have received report from RIAZ AMOR and had the opportunity to ask questions and assume patient care.
[2020-04-01] MEDS ORDERED: carvedilol 6.25mg tablet PO SCH (20:00)
--- NOTE | 2020-04-02 01:34 | NUR ---
per teletypesetter monitor, pt is has been in sinus rhythm so far this shift
[2020-04-02 02:00] VITALS: BP 126/70
[2020-04-02 06:08] LABS: BASOPHILS # (AUTO) 0.1 X10'3 (0-0.2); BASOPHILS % (AUTO) 0.6 % (0-1); EOSINOPHILS # (AUTO) 0.1 X10'3 (0-0.9); EOSINOPHILS % (AUTO) 0.8 % (0-6); HEMATOCRIT 31.2 % (42.0-52.0); HEMOGLOBIN 10.1 g/dl (14.0-17.9); LYMPHOCYTES % (AUTO) 7.7 % (21-51); MEAN CORPUSCULAR HEMOGLOBIN 30.7 PG (27.0-31.0); MEAN CORPUSCULAR HGB CONC 32.4 g/dL (33.0-36.5); MEAN CORPUSCULAR VOLUME 94.9 FL (78-98); MEAN PLATELET VOLUME 8.6 FL (7.4-10.4); MONOCYTES # (AUTO) 0.6 X10'3 (0-0.9); MONOCYTES % (AUTO) 4.8 % (2-12); NEUTROPHILS # (AUTO) 10.8 X10'3 (1.8-7.7); NEUTROPHILS % (AUTO) 86.1 % (42-75); PLATELET COUNT 276 X10'3 (140-440); RED BLOOD COUNT 3.29 X10'6 (4.70-6.10); WHITE BLOOD COUNT 12.5 X10'3 (4.5-11.0)
[2020-04-02 06:12] LABS: ALBUMIN 2.9 G/DL (3.4-5.0); ANION GAP 6 (8-16); BLOOD UREA NITROGEN 19 MG/DL (7-18); BUN/CREATININE RATIO 13.4 (5.4-32.0); CALCIUM 8.5 MG/DL (8.5-10.1); CHLORIDE 105 MMOL/L (99-107); CREATININE 1.42 MG/DL (0.60-1.10); GLUCOSE 106 MG/DL (70-104); MAGNESIUM 2.1 MG/DL (1.5-2.4); POTASSIUM 3.9 MMOL/L (3.5-5.1); SODIUM 140 MMOL/L (135-145); TOTAL CARBON DIOXIDE 28.6 MMOL/L (24-32); eGFR 49 ML/MIN
--- NOTE | 2020-04-02 06:20 | NUR ---
Problems reprioritized. Patient report given, questions answered & plan of care reviewed with Madyson and Harrison RNs.
--- NOTE | 2020-04-02 06:28 | NUR ---
Patient in room PCU 3016. I have received report from Abril AMOR and had the opportunity to ask questions and assume patient care. Patient awake in bed and offers no complaints. All immediate needs met at this time.
[2020-04-02 07:00] VITALS: BP 137/67
[2020-04-02] MEDS ORDERED: VALS40TA2 PO (07:30)
[2020-04-02] MEDS: furosemide 40mg/4ml inj IV SCH (07:58)
[2020-04-02] MEDS: amiodarone 200mg tablet PO SCH (07:59)
[2020-04-02] MEDS: carvedilol 6.25mg tablet PO SCH (07:59)
[2020-04-02] MEDS: potassium Cl 20 mEq SR tablet PO SCH (07:59)
[2020-04-02] MEDS: apixaban 5mg tablet PO SCH (08:00)
[2020-04-02] MEDS ORDERED: docusate sod 100mg capsule PO SCH (08:00)
[2020-04-02] MEDS ORDERED: AMIO200T61 PO (09:46)
[2020-04-02] MEDS ORDERED: POTA10TA36 PO (09:46)
[2020-04-02] MEDS ORDERED: CARV6.253 PO (09:46)
[2020-04-02] MEDS ORDERED: APIX5TAB3 PO (09:46)
[2020-04-02] MEDS ORDERED: FURO40TA4 PO (09:46)
--- NOTE | 2020-04-02 10:00 | NUR ---
Wound care at bedside to see pt. Pt gave verbal consent to be seen. On examination pt showed his left lower leg cluster of venous wounds. He stated they started as blisters when his legs swelled up. Pt's leg wounds present as partial thickness wounds with red wound beds, some surrounding redness and leg is still edematous. Applied xeroform to wound beds after cleansing with NS and drying, then covered with ABD pad, wrapped with gauze roll, then ANNALISE wrap with no compression> Pt was given supplies for up to 3 days of dressing changes and shown the dressing change process. He verbalized understanding.
[2020-04-02 11:00] VITALS: BP 117/70
--- NOTE | 2020-04-02 11:30 | NUR ---
Patient stable per MD orders. All discharge instructions reviewed with patient and all questions answered. Patient to follow up with PCP in 3 days. Patient to follow up with Dr. De in 2-3 weeks. New orders for outpatient wound care for patient. [facility] PIV discontinued - cannula intact. Telemetry monitoring discontinued. All patient belongings packed up and sent with patient in private vehicle to home. Patient wheeled to lobby by [facility].
== END 2020-04-02 11:30 | disposition home or self-care (01) | DRG 291 ==
LOC: ER 22:34 → ED HOLD 04-01 00:17 → PCU 3S 04-01 00:55
PROVIDERS: ADMIT Internal Medicine; ATTEND Family Medicine
DX: I13.0 Hypertensive heart and chronic kidney disease with heart failure and stage 1 through stage 4 chronic kidney disease, or unspecified chronic kidney disease (principal); I50.23 Acute on chronic systolic (congestive) heart failure; N17.9 Acute kidney failure, unspecified; D72.829 Elevated white blood cell count, unspecified; I25.5 Ischemic cardiomyopathy; I25.10 Atherosclerotic heart disease of native coronary artery without angina pectoris; N18.9 Chronic kidney disease, unspecified; D64.9 Anemia, unspecified; E78.00 Pure hypercholesterolemia, unspecified; I48.0 Paroxysmal atrial fibrillation; E78.5 Hyperlipidemia, unspecified; K21.9 Gastro-esophageal reflux disease without esophagitis; I25.2 Old myocardial infarction; Z79.82 Long term (current) use of aspirin; Z79.899 Other long term (current) drug therapy; Z95.1 Presence of aortocoronary bypass graft
CPT/HCPCS: 36415; 71045; 80048; 80053; 83735; 83880; 84145; 84484; 85025; 87081; 93005; 93306; 93926; 96365; 96375; 96376; 99285; G0378; J1650; J1940; J3490

== ENCOUNTER 2020-04-04 10:50 | Day surgery (SDC) | payer OTHER, MEDICARE ==
[~2020-04-04 10:50] MED LIST changes: +APIX5TAB3 PO; -CARV3.122 PO; +CARV6.253 PO; -FURO-150 PO; +FURO40TA4 PO; +POTA10TA36 PO; -SENN-166 PO; +SENN1TAB82 PO; +VALS40TA2 PO
[2020-04-04] MEDS ORDERED: LIDOcaine 2% 5ml jelly ONE (11:47)
== END 2020-04-04 12:24 | disposition home or self-care (01) ==
LOC: WOUND CARE 10:50
PROVIDERS: ATTEND Nurse Practitioner
DX: T81.89XA Other complications of procedures, not elsewhere classified, initial encounter (principal); L97.822 Non-pressure chronic ulcer of other part of left lower leg with fat layer exposed; L97.121 Non-pressure chronic ulcer of left thigh limited to breakdown of skin; L97.221 Non-pressure chronic ulcer of left calf limited to breakdown of skin; I25.5 Ischemic cardiomyopathy; I50.9 Heart failure, unspecified; I25.10 Atherosclerotic heart disease of native coronary artery without angina pectoris; K21.9 Gastro-esophageal reflux disease without esophagitis; I12.9 Hypertensive chronic kidney disease with stage 1 through stage 4 chronic kidney disease, or unspecified chronic kidney disease; N18.3 Chronic kidney disease, stage 3 (moderate); E78.00 Pure hypercholesterolemia, unspecified; E78.5 Hyperlipidemia, unspecified; I25.2 Old myocardial infarction; I48.0 Paroxysmal atrial fibrillation; G47.00 Insomnia, unspecified; F43.10 Post-traumatic stress disorder, unspecified; F17.210 Nicotine dependence, cigarettes, uncomplicated; Z79.82 Long term (current) use of aspirin; Z79.01 Long term (current) use of anticoagulants; Z98.890 Other specified postprocedural states; Z98.61 Coronary angioplasty status; Z95.1 Presence of aortocoronary bypass graft; Z79.899 Other long term (current) drug therapy; Y92.89 Other specified places as the place of occurrence of the external cause; Y83.8 Other surgical procedures as the cause of abnormal reaction of the patient, or of later complication, without mention of misadventure at the time of the procedure
CPT/HCPCS: 87070; 87075; 87077; 87102; 87186; 97597; 97598

== ENCOUNTER → 2020-04-11 | Day surgery (SDC) | payer OTHER, MEDICARE ==
[~2020-04-11] MED LIST changes: +LIDOcaine 2% 5ml jelly ONE
== END | disposition home or self-care (01) ==
LOC: WOUND CARE 13:54
PROVIDERS: ATTEND Nurse Practitioner
DX: T81.89XD Other complications of procedures, not elsewhere classified, subsequent encounter (principal); L97.822 Non-pressure chronic ulcer of other part of left lower leg with fat layer exposed; L97.121 Non-pressure chronic ulcer of left thigh limited to breakdown of skin; L97.221 Non-pressure chronic ulcer of left calf limited to breakdown of skin; I25.5 Ischemic cardiomyopathy; I50.9 Heart failure, unspecified; I25.10 Atherosclerotic heart disease of native coronary artery without angina pectoris; K21.9 Gastro-esophageal reflux disease without esophagitis; I12.9 Hypertensive chronic kidney disease with stage 1 through stage 4 chronic kidney disease, or unspecified chronic kidney disease; N18.3 Chronic kidney disease, stage 3 (moderate); E78.00 Pure hypercholesterolemia, unspecified; E78.5 Hyperlipidemia, unspecified; I25.2 Old myocardial infarction; I48.0 Paroxysmal atrial fibrillation; G47.00 Insomnia, unspecified; F43.10 Post-traumatic stress disorder, unspecified; F17.210 Nicotine dependence, cigarettes, uncomplicated; Z79.82 Long term (current) use of aspirin; Z79.01 Long term (current) use of anticoagulants; Z98.890 Other specified postprocedural states; Z98.61 Coronary angioplasty status; Z95.1 Presence of aortocoronary bypass graft; Z79.899 Other long term (current) drug therapy; Y83.8 Other surgical procedures as the cause of abnormal reaction of the patient, or of later complication, without mention of misadventure at the time of the procedure
CPT/HCPCS: 97597

== ENCOUNTER 2020-04-18 08:30 | Day surgery (SDC) | payer OTHER, MEDICARE ==
[~2020-04-18 08:30] MED LIST changes: -LIDOcaine 2% 5ml jelly ONE
[2020-04-18] MEDS ORDERED: LIDOcaine 2% 5ml jelly ONE (08:39)
== END 2020-04-18 10:07 | disposition home or self-care (01) ==
LOC: WOUND CARE 08:30
PROVIDERS: ATTEND Nurse Practitioner
DX: T81.89XD Other complications of procedures, not elsewhere classified, subsequent encounter (principal); L97.822 Non-pressure chronic ulcer of other part of left lower leg with fat layer exposed; L97.122 Non-pressure chronic ulcer of left thigh with fat layer exposed; L97.221 Non-pressure chronic ulcer of left calf limited to breakdown of skin; I25.5 Ischemic cardiomyopathy; I50.9 Heart failure, unspecified; I25.10 Atherosclerotic heart disease of native coronary artery without angina pectoris; K21.9 Gastro-esophageal reflux disease without esophagitis; I12.9 Hypertensive chronic kidney disease with stage 1 through stage 4 chronic kidney disease, or unspecified chronic kidney disease; N18.3 Chronic kidney disease, stage 3 (moderate); E78.00 Pure hypercholesterolemia, unspecified; E78.5 Hyperlipidemia, unspecified; I25.2 Old myocardial infarction; I48.0 Paroxysmal atrial fibrillation; G47.00 Insomnia, unspecified; F43.10 Post-traumatic stress disorder, unspecified; F17.210 Nicotine dependence, cigarettes, uncomplicated; Z79.82 Long term (current) use of aspirin; Z79.01 Long term (current) use of anticoagulants; Z98.890 Other specified postprocedural states; Z98.61 Coronary angioplasty status; Z95.1 Presence of aortocoronary bypass graft; Z79.899 Other long term (current) drug therapy; Y83.8 Other surgical procedures as the cause of abnormal reaction of the patient, or of later complication, without mention of misadventure at the time of the procedure
CPT/HCPCS: 87070; 87075; 87077; 87102; 87186; 93971; 97597

== ENCOUNTER 2020-04-25 08:00 | Day surgery (SDC) | payer MEDICARE, OTHER ==
[2020-04-25] MEDS ORDERED: LIDOcaine 2% 5ml jelly ONE (08:26)
== END 2020-04-25 08:59 | disposition home or self-care (01) ==
LOC: WOUND CARE 08:00
PROVIDERS: ATTEND Nurse Practitioner
DX: T81.89XD Other complications of procedures, not elsewhere classified, subsequent encounter (principal); L97.822 Non-pressure chronic ulcer of other part of left lower leg with fat layer exposed; L97.122 Non-pressure chronic ulcer of left thigh with fat layer exposed; L97.221 Non-pressure chronic ulcer of left calf limited to breakdown of skin; I25.5 Ischemic cardiomyopathy; I50.9 Heart failure, unspecified; I25.10 Atherosclerotic heart disease of native coronary artery without angina pectoris; K21.9 Gastro-esophageal reflux disease without esophagitis; I12.9 Hypertensive chronic kidney disease with stage 1 through stage 4 chronic kidney disease, or unspecified chronic kidney disease; N18.3 Chronic kidney disease, stage 3 (moderate); E78.00 Pure hypercholesterolemia, unspecified; E78.5 Hyperlipidemia, unspecified; I25.2 Old myocardial infarction; I48.0 Paroxysmal atrial fibrillation; G47.00 Insomnia, unspecified; F43.10 Post-traumatic stress disorder, unspecified; F17.210 Nicotine dependence, cigarettes, uncomplicated; Z79.82 Long term (current) use of aspirin; Z79.01 Long term (current) use of anticoagulants; Z98.890 Other specified postprocedural states; Z98.61 Coronary angioplasty status; Z95.1 Presence of aortocoronary bypass graft; Z79.899 Other long term (current) drug therapy; Y83.8 Other surgical procedures as the cause of abnormal reaction of the patient, or of later complication, without mention of misadventure at the time of the procedure
CPT/HCPCS: 97597

== ENCOUNTER 2020-05-02 08:00 | Day surgery (SDC) | payer OTHER ==
[2020-05-02] MEDS ORDERED: LIDOcaine 2% 5ml jelly ONE (08:44)
== END 2020-05-02 09:08 | disposition home or self-care (01) ==
LOC: WOUND CARE 08:00
PROVIDERS: ATTEND Nurse Practitioner
DX: T81.89XD Other complications of procedures, not elsewhere classified, subsequent encounter (principal); L97.121 Non-pressure chronic ulcer of left thigh limited to breakdown of skin; L97.821 Non-pressure chronic ulcer of other part of left lower leg limited to breakdown of skin; L97.221 Non-pressure chronic ulcer of left calf limited to breakdown of skin; I13.0 Hypertensive heart and chronic kidney disease with heart failure and stage 1 through stage 4 chronic kidney disease, or unspecified chronic kidney disease; I50.9 Heart failure, unspecified; N18.30 Chronic kidney disease, stage 3 unspecified; I25.5 Ischemic cardiomyopathy; I25.10 Atherosclerotic heart disease of native coronary artery without angina pectoris; K21.9 Gastro-esophageal reflux disease without esophagitis; E78.00 Pure hypercholesterolemia, unspecified; E78.5 Hyperlipidemia, unspecified; I25.2 Old myocardial infarction; I48.0 Paroxysmal atrial fibrillation; G47.00 Insomnia, unspecified; F43.10 Post-traumatic stress disorder, unspecified; F17.210 Nicotine dependence, cigarettes, uncomplicated; Z79.82 Long term (current) use of aspirin; Z79.01 Long term (current) use of anticoagulants; Z98.890 Other specified postprocedural states; Z98.61 Coronary angioplasty status; Z95.1 Presence of aortocoronary bypass graft; Z79.899 Other long term (current) drug therapy; Y83.8 Other surgical procedures as the cause of abnormal reaction of the patient, or of later complication, without mention of misadventure at the time of the procedure
CPT/HCPCS: 97597

== ENCOUNTER 2020-05-09 07:55 | Day surgery (SDC) | payer OTHER ==
[~2020-05-09 07:55] MED LIST changes: -FURO40TA4 PO
[2020-05-09] MEDS ORDERED: LIDOcaine 2% 5ml jelly ONE (08:29)
== END 2020-05-09 08:54 | disposition home or self-care (01) ==
LOC: WOUND CARE 07:55
PROVIDERS: ATTEND Nurse Practitioner
DX: T81.89XD Other complications of procedures, not elsewhere classified, subsequent encounter (principal); L97.122 Non-pressure chronic ulcer of left thigh with fat layer exposed; L97.822 Non-pressure chronic ulcer of other part of left lower leg with fat layer exposed; L97.221 Non-pressure chronic ulcer of left calf limited to breakdown of skin; I25.5 Ischemic cardiomyopathy; I50.9 Heart failure, unspecified; I25.10 Atherosclerotic heart disease of native coronary artery without angina pectoris; K21.9 Gastro-esophageal reflux disease without esophagitis; I12.9 Hypertensive chronic kidney disease with stage 1 through stage 4 chronic kidney disease, or unspecified chronic kidney disease; N18.30 Chronic kidney disease, stage 3 unspecified; E78.00 Pure hypercholesterolemia, unspecified; E78.5 Hyperlipidemia, unspecified; I25.2 Old myocardial infarction; I48.0 Paroxysmal atrial fibrillation; G47.00 Insomnia, unspecified; F43.10 Post-traumatic stress disorder, unspecified; F17.210 Nicotine dependence, cigarettes, uncomplicated; Z79.82 Long term (current) use of aspirin; Z79.01 Long term (current) use of anticoagulants; Z98.890 Other specified postprocedural states; Z98.61 Coronary angioplasty status; Z95.1 Presence of aortocoronary bypass graft; Z79.899 Other long term (current) drug therapy; Y83.8 Other surgical procedures as the cause of abnormal reaction of the patient, or of later complication, without mention of misadventure at the time of the procedure
CPT/HCPCS: 97597

== ENCOUNTER 2020-06-03 08:56 | Emergency (ER) | payer OTHER ==
[~2020-06-03] VITALS: Ht 175.3 cm; Wt 66.8 kg
[2020-06-03] MEDS ORDERED: diltiazem 5mg/ml 5ml inj. IV ONE (09:05)
[2020-06-03] MEDS ORDERED: normal saline 1000ML IV soln IVB ONE (09:05)
[2020-06-03 09:26] LABS: BASOPHILS # (AUTO) 0.1 X10'3 (0-0.2); BASOPHILS % (AUTO) 0.9 % (0-1); EOSINOPHILS # (AUTO) 0.1 X10'3 (0-0.9); EOSINOPHILS % (AUTO) 0.8 % (0-6); HEMATOCRIT 37.3 % (42.0-52.0); HEMOGLOBIN 11.9 g/dl (14.0-17.9); LYMPHOCYTES # (AUTO) 0.8 X10'3 (1.1-4.8); LYMPHOCYTES % (AUTO) 5.3 % (21-51); MEAN CORPUSCULAR VOLUME 84.2 FL (78-98); MEAN PLATELET VOLUME 9.6 FL (7.4-10.4); MONOCYTES % (AUTO) 6.8 % (2-12); NEUTROPHILS # (AUTO) 12.9 X10'3 (1.8-7.7); NEUTROPHILS % (AUTO) 86.2 % (42-75); PLATELET COUNT 262 X10'3 (140-440); RED BLOOD COUNT 4.42 X10'6 (4.70-6.10); RED CELL DISTRIBUTION WIDTH 17.1 % (11.5-14.5)
[2020-06-03 09:48] LABS: ALANINE AMINOTRANSFERASE 81 U/L (12-78); ALBUMIN/GLOBULIN RATIO 0.8 (1.1-1.5); ALKALINE PHOSPHATASE 73 IU/L (46-116); ANION GAP 13 (8-16); ASPARTATE AMINO TRANSFERASE 56 U/L (10-37); BILIRUBIN,TOTAL 1.3 MG/DL (0.1-1.0); BLOOD UREA NITROGEN 16 MG/DL (7-18); BUN/CREATININE RATIO 12.4 (5.4-32.0); CALCIUM 8.7 MG/DL (8.5-10.1); CHLORIDE 98 MMOL/L (99-107); CREATININE 1.29 MG/DL (0.60-1.10); GLUCOSE 141 MG/DL (70-104); POTASSIUM 4.5 MMOL/L (3.5-5.1); SODIUM 132 MMOL/L (135-145); TOTAL CARBON DIOXIDE 21.2 MMOL/L (24-32); eGFR 55 ML/MIN
[2020-06-03 09:57] LABS: MAGNESIUM 2.1 MG/DL (1.5-2.4)
[2020-06-03 11:14] VITALS: BP 125/66
== END 2020-06-03 11:15 | disposition home or self-care (01) ==
LOC: ER 08:56
DX: I48.91 Unspecified atrial fibrillation (principal); E05.90 Thyrotoxicosis, unspecified without thyrotoxic crisis or storm; I25.10 Atherosclerotic heart disease of native coronary artery without angina pectoris; E78.00 Pure hypercholesterolemia, unspecified; I11.0 Hypertensive heart disease with heart failure; I25.2 Old myocardial infarction; Z98.61 Coronary angioplasty status; Z95.1 Presence of aortocoronary bypass graft; Z79.01 Long term (current) use of anticoagulants; Z79.82 Long term (current) use of aspirin; Z79.899 Other long term (current) drug therapy
CPT/HCPCS: 36415; 71045; 80053; 83735; 83880; 84443; 84484; 85025; 85610; 93005; 96360; 99285; J7030

== ENCOUNTER 2020-07-17 05:22 | Emergency (ER) | payer OTHER, MEDICARE ==
[~2020-07-17] VITALS: Ht 175.3 cm; Wt 68.2 kg
[2020-07-17] MEDS ORDERED: diltiazem 5mg/ml 5ml inj. IV ONE ×2 (05:35→06:30)
[2020-07-17 05:50] LABS: BASOPHILS # (AUTO) 0.1 X10'3 (0-0.2); BASOPHILS % (AUTO) 1.3 % (0-1); EOSINOPHILS # (AUTO) 0.2 X10'3 (0-0.9); EOSINOPHILS % (AUTO) 2.2 % (0-6); HEMATOCRIT 38.2 % (42.0-52.0); HEMOGLOBIN 12.3 g/dl (14.0-17.9); LYMPHOCYTES # (AUTO) 1.4 X10'3 (1.1-4.8); LYMPHOCYTES % (AUTO) 14.1 % (21-51); MEAN CORPUSCULAR HEMOGLOBIN 26.4 PG (27.0-31.0); MEAN CORPUSCULAR HGB CONC 32.2 g/dL (33.0-36.5); MEAN CORPUSCULAR VOLUME 81.9 FL (78-98); MEAN PLATELET VOLUME 9.8 FL (7.4-10.4); MONOCYTES # (AUTO) 0.7 X10'3 (0-0.9); MONOCYTES % (AUTO) 7.6 % (2-12); NEUTROPHILS # (AUTO) 7.4 X10'3 (1.8-7.7); NEUTROPHILS % (AUTO) 74.8 % (42-75); PLATELET COUNT 196 X10'3 (140-440); RED BLOOD COUNT 4.67 X10'6 (4.70-6.10); RED CELL DISTRIBUTION WIDTH 18.9 % (11.5-14.5); WHITE BLOOD COUNT 9.9 X10'3 (4.5-11.0)
[2020-07-17 06:00] LABS: PARTIAL THROMBOPLASTIN TIME 29 SECONDS (22-32)
[2020-07-17 06:02] LABS: ALANINE AMINOTRANSFERASE 29 U/L (12-78); ALBUMIN 3.6 G/DL (3.4-5.0); ALKALINE PHOSPHATASE 88 IU/L (46-116); ANION GAP 11 (8-16); ASPARTATE AMINO TRANSFERASE 16 U/L (10-37); BILIRUBIN,TOTAL 1.1 MG/DL (0.1-1.0); BLOOD UREA NITROGEN 20 MG/DL (7-18); BUN/CREATININE RATIO 13.7 (5.4-32.0); CALCIUM 9.1 MG/DL (8.5-10.1); CHLORIDE 103 MMOL/L (99-107); CREATININE 1.46 MG/DL (0.60-1.10); GLUCOSE 137 MG/DL (70-104); POTASSIUM 4.3 MMOL/L (3.5-5.1); SODIUM 140 MMOL/L (135-145); TOTAL CARBON DIOXIDE 26.2 MMOL/L (24-32); TOTAL PROTEIN 7.1 G/DL (6.4-8.2); eGFR 48 ML/MIN
[2020-07-17 06:11] LABS: MAGNESIUM 2.1 MG/DL (1.5-2.4)
[2020-07-17 07:50] LABS: ANISOCYTOSIS 2+; LARGE PLATELETS FEW; PLATELET ESTIMATE NORMAL
[2020-07-17 07:51] LABS: ELLIPTOCYTES 1+
[2020-07-17 08:09] VITALS: BP 128/75
== END 2020-07-17 08:19 | disposition home or self-care (01) ==
LOC: ER 05:22
DX: I48.91 Unspecified atrial fibrillation (principal); I25.10 Atherosclerotic heart disease of native coronary artery without angina pectoris; E78.00 Pure hypercholesterolemia, unspecified; I10 Essential (primary) hypertension; Z79.82 Long term (current) use of aspirin; Z79.899 Other long term (current) drug therapy; Z95.1 Presence of aortocoronary bypass graft; Z98.61 Coronary angioplasty status
CPT/HCPCS: 36415; 71045; 80053; 83735; 83880; 84443; 84484; 85008; 85025; 85610; 85730; 93005; 96374; 96376; 99285; J3490